=== PATIENT | female | born 1970 | race Caucasian/White ===

== ENCOUNTER 2023-07-22 12:24 | Outpatient (OUT) | payer MEDICAID, SELFPAY ==
--- NOTE | 2023-07-22 13:00 | XR_ITS ---
The [address] [address] Patient Name: FLOYD PEÑA MRN: [id number] date: 1970 Sex: F Assigned Patient Location: [facility] Current Patient Location: [facility] Accession/Order Number: [id number] Exam Date: 07/22/2023 12:55 Report Date: 07/22/2023 13:45 At the request of: EVA MAURICIO Procedure: XR hip RT 2V w/ pelvis PROCEDURE: XR hip RT 2V w/ pelvis HISTORY: M25.551 ; acute right hip pain after rolling over in bed COMPARISON: None. FINDINGS: BONES:1.7 cm thin-walled, slightly lucent area within femoral neck without appreciable periosteal reaction, cortical thickening, or fracture. No significant joint space narrowing or periarticular osteophytes. SOFT TISSUES:No visible soft tissue swelling. EFFUSION:None visible. OTHER: Negative. XR/XR hip RT 2V w/ pelvis IMPRESSION: 1. No acute bone abnormality. 2. Nonspecific bone lesion within right femoral neck; possible bone cyst. No prior studies of this area to document stability. Consider MRI of right hip for further evaluation. Alternatively, a follow-up right hip radiograph in 3-6 months can be obtained to start documenting stability versus change. Electronically authenticated by: AYO CRISTINA Date: 07/22/2023 13:45
== END 2023-07-22 12:25 | disposition home or self-care (01) ==
LOC: RAD 12:26
PROVIDERS: PCP Family Medicine; Visit Provider Family Medicine
DX: M25.551 Pain in right hip (principal)
CPT/HCPCS: 73502

== ENCOUNTER 2023-08-06 12:35 | Outpatient (OUT) | payer MEDICARE, MEDICAID, SELFPAY ==
--- NOTE | 2023-08-06 12:48 | MR_ITS ---
The [address] [address] Patient Name: FLOYD PEÑA MRN: [id number] date: 1970 Sex: F Assigned Patient Location: MRI Current Patient Location: MRI Accession/Order Number: [id number] Exam Date: 08/06/2023 13:00 Report Date: 08/06/2023 18:48 At the request of: EVA MAURICIO Procedure: MR hip RT wo con EXAM: MR hip RT wo con HISTORY: Right hip COMPARISON: X-rays 07/22/2023 and 10/30/2021 TECHNIQUE: Axial and coronal large sxivj-no-vorf MRI imaging through the pelvis and both hips. Small ibcax-ww-ltke coronal and sagittal MRI imaging through the right hip FINDINGS: As demonstrated on both prior x-rays there is a stable benign cyst within the right femoral head measuring approximately 11.9 x 10 x 8.5 mm (coronal 8 and axial 24). No fracture, dislocation, subluxation or osseous lesion. The pubic symphysis and sacroiliac joints are unremarkable. No visualized deep pelvic abnormality. Moderate effusion of the right hip joint. Bone marrow edema within the superior lateral aspect of the acetabulum. Questionable irregularity of the acetabular labrum between the 12:00 and 2:00 position. However, limited evaluation on this study. The femoral head and acetabular cartilage exhibits no gross chondral or osteochondral irregularity. The left hip joint exhibits no effusion. The acetabular labrum is normal. The femoral head and acetabular cartilage exhibit no gross abnormality. Chronic interstitial edema of the origin of both common hamstring complexes (coronal large hveuh-ch-team 25). The remainder of the visualized tendons exhibit no additional thickening, tear or edema. No abnormal bursal fluid collections. No muscle edema, hematoma, atrophy or fatty infiltration. The superficial subcutaneous soft tissues exhibit no edema, hematoma, mass or cyst MR/MR hip RT wo con IMPRESSION: Moderate right hip joint effusion. Poorly evaluated presumed fraying of the anterior superior aspect the acetabular labrum between the 12:00 and 2:00 position and degenerative marrow edema of the adjacent acetabulum. Benign simple cyst within the right femoral head Electronically authenticated by: JOAQUIN WELLINGTON Date: 08/06/2023 18:48
== END 2023-08-06 12:36 | disposition home or self-care (01) ==
PROVIDERS: PCP Family Medicine; Visit Provider Family Medicine
DX: M89.9 Disorder of bone, unspecified (principal); M25.451 Effusion, right hip
CPT/HCPCS: 73721

== ENCOUNTER 2023-09-13 11:11 | Outpatient (OUT) | payer MEDICARE, MEDICAID, SELFPAY ==
--- NOTE | 2023-09-13 11:13 | MM_ITS ---
Patient Name: FLOYD PEÑA MR#: [id number] : 1970 Exam Date: 09/13/2023 Ordering Doctor: DR Jonelle Hess M.D. RADIOLOGY REPORT PROCEDURE: MM TOMOSYNTHESIS SCREENING BI COMPARISON: MG MAMM FARHAN SCRN W CAD DIG, 11/22/2014. INDICATIONS: Screening Calculator Name NCI Breast Cancer Risk Assessment Tool 5 Year Breast Cancer Risk 0.70% Lifetime Breast Cancer Risk 6.40% Personal Breast Cancer No Personal Ovarian Cancer No Treatments None Family Cancers Mother with uterine cancer at age ~38; Grandmother-maternal with uterine cancer at age ~55. LOCATION: [facility] BREAST COMPOSITION: Scattered areas fibroglandular density. FINDINGS: DIAGNOSTIC CATEGORY 1--NEGATIVE. RIGHT BREAST: No significant suspicious finding. No significant change has occurred. LEFT BREAST: No significant suspicious finding. No significant change has occurred. RECOMMENDATIONS: ROUTINE MAMMOGRAM AND CLINICAL EVALUATION IN 12 MONTHS. PLEASE NOTE: A NORMAL MAMMOGRAM DOES NOT EXCLUDE THE POSSIBILITY OF BREAST CANCER. A CLINICALLY SUSPICIOUS PALPABLE LUMP SHOULD BE BIOPSIED. Dictated by: Justyn Forbes M.D. on 09/14/2023 at 15:58 Approved by: Justyn Forbes M.D. on 09/14/2023 at 16:01
== END 2023-09-13 11:12 | disposition home or self-care (01) ==
LOC: MAMMO 11:11
PROVIDERS: PCP Family Medicine; Visit Provider Family Medicine
DX: Z12.31 Encounter for screening mammogram for malignant neoplasm of breast (principal); Z80.8 Family history of malignant neoplasm of other organs or systems
CPT/HCPCS: 77063; 77067

== ENCOUNTER 2024-01-30 08:10 | Emergency (ER) | payer OTHER, MEDICAID, SELFPAY ==
[2024-01-30 08:14] VITALS: BP 168/95; PULSE 91; TEMP 36.6; O2SAT 100; BMI 25.5
--- OUTSIDE RECORDS SUMMARY | 2024-01-30 08:21 | XMS_ITS | CCD ---
Author Organization [facility] Care Team Providers Care Strategic Client Executive Name Role Phone JONELLE MAURICIO Unavailable Unavailable KARIN, VESELIN Unavailable Unavailable GRECHBENITO, PA DONNIE Consulting Unavailable SHANNAN, DR TELLES Admitting Unavailable HAY, DR TELLES Attending Unavailable HANG, DR JONELLE Martínez Primary Care Unavailable HAY, DR TELLES Consulting Unavailable Arzola, Nathan Consulting Unavailable HANG, DR JONELLE Martínez Admitting Unavailable MAURICIO, DR JONELLE Martínez Attending Unavailable MAURICIO, DR JONELLE Martínez Consulting Unavailable MAURICIO, DR JONELLE Martínez Primary Care Unavailable ZIEBER, DR JUSTYN Sousa Consulting Unavailable HANG, DR JONELLE Martínez Admitting Unavailable MAURICIO, DR JONELLE Martínez Attending Unavailable HANG, DR JONELLE Martínez Primary Care Unavailable MAURICIO, DR JONELLE Martínez Consulting Unavailable Hang, Jonelle Unavailable PRIYA AGUERO Attending Unavailable PRIYA AGUERO Referring Unavailable Jonelle Mauricio MD Primary Care Provider Allergies Allergy Classification Reported Allergen(s) Allergy Type Date of Onset Reaction(s) Facility (1 source) Acetaminophen / HYDROcodone Drug Allergy 05-05-20 17 [facility] Repository (1 source) Iodine (And Iodine Containting Drugs) Drug allergy (disorder) 05-05-20 17 [facility] Rep[facility] (1 source) Latex Drug allergy (disorder) 05-05-20 17 [facility] Repository (4 sources) Acetaminophen / oxyCODONE Drug Allergy anaphylaxis [facility] [employer] Other (4 sources) Contrast media Propensity to adverse reactions 12-15-19 14 Unknown [facility] Other (4 sources) Latex Propensity to adverse reactions rash [facility] [employer] Other (4 sources) Vicodin *ANALGESICS - OPIOID* Propensity to adverse reactions Unknown [facility] [employer] Other (4 sources) Contrast Media [employer] *MEDICAL DEVICES AND SUPP Propensity to adverse reactions Comment:Iodine contrast [facility] Other (1 source) Acetaminophen / HYDROcodone Drug Allergy 05-31-20 16 Unknown [facility] Healthcare (1 source) Iodine Drug Allergy 01-18-20 12 Rash [facility] Medications Current Medications Medication Drug Class(es) Dates Sig (Normalized) Sig (Original) busPIRone hydrochloride 5 mg oral tablet (1 source) take 1 tablet by mouth every twelve hours busPIRone HCl 5 MG 1 tablet Orally Twice a day for 30 days Active 24 hr metoprolol succinate 25 mg extended release oral tablet (4 sources) beta-Adrenergic Peter Start: 07-22-2023 take 1 tablet by mouth every twenty-four hours in the morning metoprolol succinate XL (Toprol-XL) 25 MG 24 hr tablet Take 25 mg by mouth in the morning. 0 07/22/2023 Active Start: 07-22-2023 take 1 tablet by melissa th every twenty-four hours Toprol XL 25 MG 1 tablet Orally Once a day for 30 day(s) Jul, Active Multivitamins (4 sources) Multivitamins as directed Orally Active Problems Active Problems Problem Classification Problem Date Documented Da te Episodic/Chronic Anxiety disorders (5 sources) Anxiety disorder; Translations: [Anxiety disorder, unspecified] Onset: 06-08-2014 Chronic Chronic obstructive pulmonary disease and bronchiectasis (1 source) Bronchitis, not specified as acute or chronic; Translations: [BRONCHITIS NOT SPEC ACUTE/CHRON] Onset: 12-19-2021 Episodic Essential hypertension (4 sources) Essential hypertension; Translations: [Essential (primary) hypertension] Chronic Nonspecific chest pain (1 source) Chest pain, unspecified; Translations: [Chest pain, unspecified] Onset: 06-21-2018 Episodic Other aftercare (1 source) Other watermelon harvesting supervisor (current) drug therapy; Translations: [OTH CARE HOME CURRENT DRUG THERAPY] Onset: 12-19-2021 Episodic Other aftercare (4 sources) History and physical examination, follow-up; Translations: [Encounter for follow-up examination after completed treatment for conditions other than malignant neoplasm] Episodic Other bone disease and musculoskeletal deformities (1 source) Disorder of bone, unspecified Episodic Other circulatory disease (4 sources) Elevated blood-pressure reading without diagnosis of hypertension; Translations: [Elevated blood-pressure reading, without diagnosis of hypertension] Episodic Other circulatory disease (1 source) Elevated blood-pressure reading, without diagnosis of hypertension Episodic Other non-traumatic joint disorders (5 sources) Pain in right hip; Translations: [PAIN IN RIGHT HIP] Onset: 10-30-2021 Episodic Other non-traumatic joint disorders (4 sources) Pain in right hip joint; Translations: [Pain in right hip] Episodic Other nutritional; endocrine; and metabolic disorders (4 sources) Body mass index 25-29 - overweight; Translations: [Body mass index (BMI) 25.0-25.9, adult] Episodic Other screening for suspected conditions (not mental disorders or infectious disease) (1 source) Encounter for screening mammogram for malignant neoplasm of breast Episodic Other upper respiratory infections (4 sources) Chronic sinusitis; Translations: [Chronic sinusitis, unspecified] Chronic Spondylosis; intervertebral disc disorders; other back problems (8 sources) Backache; Translations: [Dorsalgia, unspecified] Resolved: 05-20-2017 Episodic Substance-related disorders (1 source) Nicotine dependence, cigarettes, uncomplicated; Translations: [NICOTINE DEPEND CIGARETTES UNCOMP] Onset: 12-19-2021 Chronic Unclassified (3 sources) COUGH, UNSPECIFIED; Translations: [COUGH, UNSPECIFIED] Onset: 12-19-2021 Unclassified (4 sources) CONTACT W/AND (SUSP) EXPOS COVID-19; Translations: [CONTACT W/AND (SUSP) EXPOS COVID-19] Onset: 12-19-2021 Unclassified (1 source) LOW BACK PAIN, UNSPECIFIED; Translations: [LOW BACK PAIN, UNSPECIFIED] Onset: 11-05-2021 Past or Other Problems Problem Classification Problem Date Documented Date Episodic/Chronic Abdominal pain (4 sources) Abdominal pain; Translations: [Unspecified abdominal pain] Onset: 04-19-2017 Episodic Malaise and fatigue (4 sources) Fatigue; Translations: [Other fatigue] Onset: 04-19-2017 Episodic Nausea and vomiting (4 sources) Vomiting; Translations: [Vomiting, unspecified] Onset: 04-19-2017 Episodic Other female genital disorders (4 sources) Hypertrophy of uterus; Translations: [Hypertrophy of uterus] Onset: 04-19-2017 Episodic Other female genital disorders (4 sources) Other noninflammatory disorders of ovary, fallopian tube and broad ligament; Translations: [Other noninflammatory disorders of ovary, fallopian tube and broad ligament] Onset: 04-22-2017 Episodic Unclassified (1 source) COUGH, UNSPECIFIED; Translations: [COUGH, UNSPECIFIED] Onset: 12-16-2021 Unclassified (1 source) CONTACT W/AND (SUSP) EXPOS COVID-19; Translations: [CONTACT W/AND (SUSP) EXPOS COVID-19] Onset: 12-10-2021 Results Test Name Value Interpretation Reference Range Facility CBC AUTO DIFFon 12-16-2021 BASO # 0.0 103/ul Normal 0.0-0.1 [facility] Comment on above: Performed By: #### C BC #### [facility] [address] [address] [address] Paxton Kim Basophils/100 WBC (Bld) 0.8 % Normal 0.2-2.0 [facility] Comment on above: Performed By: #### C BC #### [facility] [address] [address] [address] Paxton Kim EO # 0.1 103/ul Normal 0.0-0.7 [facility] Comment on above: Performed By: #### C BC #### [facility] [address] [address] [address] Paxton Kim Eosinophils/100 WBC (Bld) 2.2 % Normal 0.9-7.0 [facility] Comment on above: Performed By: #### C BC #### [facility] [address] [address] [address] Paxton Kim Erythrocyte distribution width (RBC) [Ratio] 13.6 % Normal 11.0-15.0 [facility] Comment on above: Performed By: #### C BC #### [facility] [address] [address] [address] Paxton Kim Hematocrit (Bld) [Volume fraction] 44.1 % Normal 36.0-48.0 [facility] Comment on above: Performed By: #### C BC #### [facility] [address] [address] [address] Paxton Kim Hemoglobin (Bld) [Mass/Vol] 14.7 g/dL Normal 12.0-16.0 [facility] Comment on above: Performed By: #### C BC #### [facility] [address] [address] [address] Paxton Kim IG # 0.03 10e3/ul Normal 0.00-0.03 [facility] Comment on above: Performed By: #### C BC #### [facility] [address] [place] [address] Dr. Paxton Kim IG % 0.6 % Critically high 0.0-0.5 [facility] Comment on above: Performed By: #### C BC #### [facility] [address] [place] [address] Dr. Paxton Kim LYMPH # 1.1 103/ul Critically low 1.2-3.8 [facility] Comment on above: Performed By: #### C BC #### [facility] [address] [place] [address] Dr. Paxton Kim Lymphocytes/100 WBC (Bld) 22.5 % Normal 20.5-60.0 [facility] Comment on above: Performed By: #### C BC #### [facility] [address] [place] [address] Dr. Paxton Kim MANUAL DIFF REQ NO Normal [facility] Comment on above: Performed By: #### C BC #### [facility] [address] [place] [address] Dr. Paxton Kim MCH (RBC) [Entitic mass] 31.1 pg Normal 26.7-34.0 [facility] Comment on above: Performed By: #### C BC #### [facility] [address] [place] [address] Dr. Paxton Kim MCHC (RBC) [Mass/Vol] 33.3 g/dL Normal 29.9-35.2 [facility] Comment on above: Performed By: #### C BC #### [facility] [address] [place] [address] Dr. Paxton Kim MCV (RBC) [Entitic vol] 93.4 fL Normal 81.0-99.0 [facility] Comment on above: Performed By: #### C BC #### [facility] [address] [address] [address] Paxton Kim MONO # 0.6 103/ul Normal 0.3-0.8 [facility] Comment on above: Performed By: #### C BC #### [facility] [address] [address] [address] Paxton Kim Monocytes/100 WBC (Bld) 11.9 % Normal 1.7-12.0 [facility] Comment on above: Performed By: #### C BC #### [facility] [address] [place] [address] Dr. Paxton Kim NEUT # 3.0 103/ul Normal 1.4-6.5 [facility] Comment on above: Performed By: #### C BC #### [facility] [address] [place] [address] Dr. Paxton Kim Neutrophils/100 WBC (Bld) 62.0 % Normal 43.0-75.0 [facility] Comment on above: Performed By: #### C BC #### [facility] [address] [place] [address] Dr. Paxton Kim Platelet mean volume (Bld) [Entitic vol] 9.1 fL Critically low 9.5-13.5 [facility] Comment on above: Performed By: #### C BC #### [facility] [address] [place] [address] Dr. Paxton Kim PLT 271 103/ul Normal 150-450 [facility] Comment on above: Performed By: #### C BC #### [facility] [address] [place] [address] Dr. Paxton Kim RBC 4.72 106/ul Normal 4.20-5.40 [facility] Comment on above: Performed By: #### C BC #### [facility] [address] [place] [address] Dr. Paxton Kim WBC 4.9 103/ul Normal 4.0-11.0 [facility] Comment on above: Performed By: #### C BC #### [facility] [id number] Paxton Kim CTA CHEST WO W CONon 022 CTA CHEST WO W CON EXAMINATION: CTA LAYLA ST WO W CON, 12/16/2021 HISTORY: Pulmonary embolism COMPARISON: Chest x-ray 2019. TECHNIQUE: CT angiography of the pulmonary arteries following the administration of intravenous 100 mL Omnipaque 350 iodine contrast. Coronal and sagittal MIP (maximum intensity projection) images were performed. The study is satisfactory for evaluation of the pulmonary arteries. Dose reduction techniques were achieved by using automated exposure control and/or adjustment of mA and/or kV according to patient size and/or use of iterative reconstruction technique. FINDINGS: The main pulmonary artery, right and left lobar pulmonary arteries and bilateral segmental pulmonary arteries are opacified and show no filling defect to suggest pulmonary thromboembolism. The lung windows demonstrate small groundglass infiltrates in the right upper lobe which could be due to early pneumonia. The central tracheobronchial airways are patent. Mild bronchial thickening in the upper lobes. Mild bronchial thickening and plugging is seen in the lower lobe bronchi. The mediastinal windows demonstrate no mediastinal or hilar lymph node enlargement. No pleural or pericardial effusion. Patent thoracic aorta and patent great vessels arising from the aortic arch. The esophagus is nondilated. Unremarkable thyroid gland. The bone windows show no focal aggressive lesion. IMPRESSION: 1. No CT evidence of pulmonary thromboembolism. 2. Bilateral diffuse bronchial wall thickening, more so in the lower lobes with plugging of the segmental bronchi, consistent with bronchitis. Small groundglass infiltrates in the right upper lobe could be due to early pneumonia. Electronically authenticated by: NATHAN ARZOLA Date: 2021-12-16 20:15 Normal [facility] Covid-19 PCR (CVDTBH)on 12-02 SARS-CoV-2 (COVID-19) RNA SHAYLA+probe Ql (Unsp spec) Not detected Normal NOT DETECTED [facility] Comment on above: Result Comment: This test is not yet approved or cleared by the [place] FDA. When there are no FDA-approved or cleared tests available, and other criteria are met, FDA can make tests available under an emergency access mechanism called an Emergency Use Authorization (EUA). The EUA for this test is supported by the [place] of Health and Human Service's (HHS's) declaration that circumstances exist to justify the emergency use of in vitro diagnostics for the detection and/or diagnosis of the virus that causes COVID-19. This EUA will remain in effect (meaning this test can be used) for the duration of the COVID-19 declaration justifying emergency of IVDs, unless it is terminated or revoked by FDA (after which the test may no longer be used). When diagnostic testing is negative, the possibility of a false negative should be considered in the context of a patient's recent exposures and the presence of clinical signs and symptoms consistent with SARS-CoV-2. Performed By: #### C VDTB #### [facility] [address] [place] [address] Dr. Paxton Kim ER URINE PROFILEon 2 Bilirubin Ql (U) Negative Normal NEGATIVE [facility] Comment on above: Performed By: #### E RUR #### [facility] [address] [place] [address] Dr. Paxton Kim Clarity (U) CLEAR Normal CLEAR [facility] Comment on above: Performed By: #### E RUR #### [facility] [address] [place] [address] Dr. Paxton Kim Color (U) YELLOW Normal YELLOW [facility] Comment on above: Performed By: #### E RUR #### [facility] [address] [place] [address] Dr. Paxton MENDIETA A micrscopic examination will be performed if indicated. Normal [facility] Comment on above: Performed By: #### E RUR #### [facility] [address] [place] [address] Dr. Paxton Kim Glucose Ql (U) Negative Normal NEGATIVE [facility] Comment on above: Performed By: #### E RUR #### [facility] [address] [place] [address] Dr. Paxton Kim Hemoglobin Ql (U) Negative Normal NEGATIVE [facility] Comment on above: Performed By: #### E RUR #### [facility] [address] [place] [address] Dr. Paxton Kim Ketones Ql (U) Negative Normal NEGATIVE [facility] Comment on above: Performed By: #### E RUR #### [facility] [address] [place] [address] Dr. Paxton Kim LEUKOCYTES Negative Normal NEGATIVE [facility] Comment on above: Performed By: #### E RUR #### [facility] [address] [place] [address] Dr. Paxton Kim Nitrite Ql (U) Negative Normal NEGATIVE [facility] Comment on above: Performed By: #### E RUR #### [facility] [address] [place] [address] Dr. Paxton Kim pH (U) 5.5 [pH] Normal 5-9 [facility] Comment on above: Performed By: #### E RUR #### [facility] [address] [place] [address] Dr. Paxton Kim SPEC GRAVITY >=1.030 Abnormal 1.005-<=1.025 [facility] Comment on above: Performed By: #### E RUR #### [facility] [address] [place] [address] Dr. Paxton Kim UA PROTEIN Negative Normal NEGATIVE/ TRACE [facility] Comment on above: Performed By: #### E RUR #### [facility] [address] [place] [address] Dr. Paxton Kim UR MICRO IND NOT INDICATED Normal [facility] Comment on above: Performed By: #### E RUR #### [facility] [address] [place] [address] Dr. Paxton Kim Urobilinogen Qn (U) 0.2 {Alex'U}/dL Normal 0.2 - 1. 0 [facility] Comment on above: Performed By: #### E RUR #### [facility] [address] [place] [address] Dr. Paxton Kim LACTATE/LACTIC ACIDon 2021 Lactate [Moles/Vol] 1.1 mmol/L Normal 0.7-2.0 [facility] Comment on above: Performed By: #### L ACT #### [facility] [address] [place] [address] Dr. Paxton Kim PROF 14(COMP METB)on 022 Albumin [Mass/Vol] 3.7 g/dL Normal 3.5-5.0 [facility] Comment on above: Performed By: #### H WENDY, CMP #### [facility] [address] [address] [address] Paxton Kim Albumin/Globulin [Mass ratio] 1.0 {ratio} Normal [facility] Comment on above: Performed By: #### H WENDY, CMP #### [facility] [address] [address] [address] Paxton Kim ALP [Catalytic activity/Vol] 111 U/L Normal 38-126 [facility] Comment on above: Performed By: #### H WENDY, CMP #### [facility] [address] [address] [address] Paxton Kim ALT [Catalytic activity/Vol] 32 U/L Normal 9-52 [facility] Comment on above: Performed By: #### H WENDY, CMP #### [facility] [address] [address] [address] Paxton Kim Anion gap [Moles/Vol] 11.5 mmol/L Normal [facility] Comment on above: Performed By: #### H WENDY, CMP #### [facility] [address] [address] [address] Paxton Kim AST [Catalytic activity/Vol] 21 U/L Normal 14-36 [facility] Comment on above: Performed By: #### H WENDY, CMP #### [facility] [address] [address] [address] Paxton Kim Bilirubin [Mass/Vol] 0.2 mg/dL Normal 0.2-1.3 [facility] Comment on above: Performed By: #### H J CARLOSPN, CMP #### [facility] [address] [address] [address] Paxton Kim Calcium [Mass/Vol] 9.3 mg/dL Normal 8.4-10.2 [facility] Comment on above: Performed By: #### H J CARLOSPN, CMP #### [facility] [address] [address] [address] Paxton Kim Chloride [Moles/Vol] 105 mmol/L Normal 98-107 [facility] Comment on above: Performed By: #### H STROPN, CMP #### [facility] [address] [address] [address] Paxton Kim CO2 [Moles/Vol] 22.9 mmol/L Normal 22.0-30.0 [facility] Comment on above: Performed By: #### H STROPN, CMP #### [facility] [address] [address] [address] Paxton Kim Creatinine [Mass/Vol] 0.60 mg/dL Normal 0.52-1.04 [facility] Comment on above: Performed By: #### H STROPN, CMP #### [facility] [address] [place] [address] Dr. Paxton Kim EGFR-AF ECUADOREAN >60 Normal >=60 [facility] Comment on above: Performed By: #### H STROPN, CMP #### [facility] [address] [place] [address] Dr. Paxton Kim EGFR-NON AF [place]UADOREAN >60 Normal >=60 [facility] Comment on above: Performed By: #### H STROPN, CMP #### [facility] [address] [address] [address] Paxton Kim Globulin (S) [Mass/Vol] 3.6 g/dL Normal [facility] Comment on above: Performed By: #### H STROPN, CMP #### [facility] [address] [place] [address] Dr. Paxton Kim Glucose [Mass/Vol] 109 mg/dL Critically high 74-[address] [facility] Comment on above: Performed By: #### H STROPN, CMP #### [facility] [address] [place] [address] Dr. Paxton Kim Potassium [Moles/Vol] 3.4 mmol/L Normal 3.4-5.0 [facility] Comment on above: Performed By: #### H STROPN, CMP #### [facility] [address] [address] [address] Paxton Kim Protein [Mass/Vol] 7.3 g/dL Normal 6.1-8.2 [facility] Comment on above: Performed By: #### H J CARLOSPN, CMP #### [facility] [address] [address] [address] Paxton Kim Sodium [Moles/Vol] 136 mmol/L Critically low 137-145 [facility] Comment on above: Performed By: #### H J CARLOSPN, CMP #### [facility] [address] [address] [address] Paxton Kim Urea nitrogen [Mass/Vol] 10.0 mg/dL Normal 7.0-17.0 [facility] Comment on above: Performed By: #### H J CARLOSPN, CMP #### [facility] [address] [place] [address] Dr. Paxton Kim Urea nitrogen/Creatinine [Mass ratio] 16.7 mg/mg Normal [facility] Comment on above: Performed By: #### H J CARLOSPN, CMP #### [facility] [address] [address] [address] Paxton Kim TROPONIN, HIGH SENSITIVITYon 12-16-2021 HSTROP 6.4 pg/mL Normal 4.0-35.5 [facility] Comment on above: Result Comment: CUT- OFF POINTS HAVE BEEN ESTABLISHED BASED ON THE FOURTH UNIVERSAL DEFINITIONS OF MYOCARDIAL INFARCTION. THE UPPER REFERENCE LIMIT (URL) OF TROPONIN, DEFINED THE 99TH PERCENTILE OF cTnI DISTRIBUTION IN A REFERENCE POPULATION, HAS BEEN CONFIRMED THE DECISION THRESHOLD FOR [place] DIAGNOSIS. Performed By: #### H J CARLOSPN, CMP #### [facility] [address] [place] [address] Dr. Paxton Kim Covid-19 PCR (CVDTB)on SARS-CoV-2 (COVID-19) RNA SHAYLA+probe Ql (Unsp spec) Not detected Normal NOT DETECTED [facility] Comment on above: Result Comment: This test is not yet approved or cleared by the [place] FDA. When there are no FDA-approved or cleared tests available, and other criteria are met, FDA can make tests available under an emergency access mechanism called an Emergency Use Authorization (EUA). The EUA for this test is supported by the [place] Coord[place] of Health and Human Service's (HHS's) declaration that circumstances exist to justify the emergency use of in vitro diagnostics for the detection and/or diagnosis of the virus that causes COVID-19. This EUA will remain in effect (meaning this test can be used) for the duration of the COVID-19 declaration justifying emergency of IVDs, unless it is terminated or revoked by FDA (after which the test may no longer be used). When diagnostic testing is negative, the possibility of a false negative should be considered in the context of a patient's recent exposures and the presence of clinical signs and symptoms consistent with SARS-CoV-2. Performed By: #### C [facility] #### [facility] [address] [place] [id number] Paxton Kim XR LSPINE MIN 4 VIEWSon 10-03 XR LSPINE MIN 4 VIEWS EXAMINATION: XR LSPINE MIN 4 VIEWS HISTORY: Low back pain for one and half months; no known injury COMPARISON: XR lumbar spine 05/31/2016 FINDINGS: BONES: Mild degenerative facet arthropathy L4-5, L5-S1. No fracture or spondylolisthesis. DISC SPACES: No significant disc height narrowing, subluxation, or endplate abnormality. PARASPINOUS: Negative. No paraspinous abnormality is seen. OTHER: Surgical clips and bowel sutures within right abdomen. Single surgical clip within left pelvis. IMPRESSION: 1. No acute bone abnormality. 2. Mild degenerative facet arthropathy of the lower lumbar spine. Electronically authenticated by: JUSTYN CRISTINA Date: 2021-10-30 11:37 Normal [facility] CBC with Diffon 06-21-2018 Abs. Basophil 0.00 k/uL Normal 0.0-0.2 [facility] Comment on above: Performed By: #### C KENNETH VARGAS DIME, CP ####[facility] [place] [address] Abs.Neutrophil (Seg) 4.80 k/uL Normal 2.5-7.0 [facility] Comment on above: Performed By: #### C KENNETH VARGAS DIME, CP ####[facility] [place] [address] Auto Diff Performed YES Normal [facility] Comment on above: Performed By: #### C DP, TROPI, DIME, CP ####[facility] [place] [address] Basophils/100 WBC Auto (Bld) 1 % Normal 0-2 [facility] Comment on above: Performed By: #### C DP, TROPI, DIME, CP ####[facility] [place] [address] Eosinophils Auto #/vol (Bld) 0.10 10*3/uL Normal 0.0-0.4 [facility] Comment on above: Performed By: #### C DP, TROPI DIME, CP ####[place] [address] [place] [address] Eosinophils/100 WBC Auto (Bld) 1 % Normal 0-5 [facility] Comment on above: Performed By: #### C DP, TROPI DIME, CP ####[place] [address] [place] [address] Erythrocyte distribution width Auto Ratio (RBC) 14.2 % Normal 12.1-15.2 [facility] Comment on above: Performed By: #### C DP, TROPI DIME, CP ####[facility] [place] [address] Hematocrit Auto Volume Fraction (Bld) 44.0 % Normal 36-46 [facility] Comment on above: Performed By: #### C DP, TROPI, DIME, CP ####[facility] [place] [address] Hemoglobin mass conc (Bld) 15.0 g/dL Normal 12.0-16.0 [facility] Comment on above: Performed By: #### C DP, TROPI, DIME, CP ####[facility] [place] [address] Lymphocytes Auto #/vol (Bld) 1.90 10*3/uL Normal 1.0-4.8 [facility] Comment on above: Performed By: #### C DP, TROPI, DIME, CP ####[facility] [place] [address] Lymphocytes/100 WBC Auto (Bld) 26 % Normal 15-40 [facility] Comment on above: Performed By: #### C DP, TROPI, DIME, CP ####[place] [address] [place] [address] MCH Auto Entitic mass (RBC) 31.9 pg Normal 26-34 [facility] Comment on above: Performed By: #### C DP, TROPI, DIME, CP ####[place] [address] [place] [address] MCHC Auto mass conc (RBC) 34.2 g/dL Normal 31-37 [facility] Comment on above: Performed By: #### C DP, TROPI, DIME, CP ####[facility] [place] [address] MCV Auto Entitic volume (RBC) 93.3 fL Normal 80-100 [facility] Comment on above: Performed By: #### C DP, TROPI, DIME, CP ####[facility] [place] [address] Monocytes Auto #/vol (Bld) 0.50 10*3/uL Normal 0.0-1.0 [facility] Comment on above: Performed By: #### C DP, TROPI, DIME, CP ####[facility] [place] [address] Monocytes/100 WBC Auto (Bld) 7 % Normal 4-8 [facility] Comment on above: Performed By: #### C KENNETH VARGAS DIME, CP ####[facility] [place] [address] Neutrophil (Seg) 65 % Normal 47-75 [facility] Comment on above: Performed By: #### C KENNETH VARGAS DIME, CP ####[place] [address] [place] [address] Platelets Auto #/vol (Bld) 339 10*3/uL Normal 140-450 [facility] Comment on above: Performed By: #### C KENNETH VARGAS DIME, CP ####[place] [address] [place] [address] RBC Auto #/vol (Bld) 4.71 10*6/uL Normal 4.0-5.2 [facility] Comment on above: Performed By: #### C KENNETH VARGAS DIME, CP ####[facility] [place] [address] WBC Auto #/vol (Bld) 7.3 10*3/uL Normal 3.5-11.0 [facility] Comment on above: Performed By: #### C KENNETH VARGAS DIME, CP ####[place] [address] [facility] [place] [address] Abs.Imm.Granulocyte NOT REPORTED Normal 0.00-0.30 [facility] Comment on above: Performed By: #### C KENNETH VARGAS DIME, CP ####[place] [address] [facility] [place] [address] Immature granulocytes #/vol (Bld) NOT REPORTED Normal 0 [facility] Comment on above: Performed By: #### C KENNETH VARGAS DIME, CP ####[place] [address] [place] [address] NRBC Automated NOT REPORTED Normal [facility] Comment on above: Performed By: #### C DP, TROPICHRISTENE, CP ####[facility] [place] [address] Platelet mean volume Auto Entitic volume (Bld) NOT REPORTED Normal 6.0-12.0 [facility] Comment on above: Performed By: #### C DP, TROPI, DIME, CP ####[facility] [place] [address] Platelets Auto #/vol (Bld) NOT REPORTED Normal [facility] Comment on above: Performed By: #### C DP, TROPI, DIME, CP ####[facility] [place] [address] RBC morphology finding Nom (Bld) NOT REPORTED Normal [facility] Comment on above: Performed By: #### C DP, TROPI, DIME, CP ####[facility] [place] [address] WBC Morphology NOT REPORTED Normal [facility] Comment on above: Performed By: #### C DP, TROPI, DIME, CP ####[place] [address] [place] [address] Comp Metabolic Profon 2017 (cont.) Normal [facility] Comment on above: Result Comment: Aver age GFR for 40-49 years old: 99 mL/min/1.73sq mChronic Kidney Disease: <60 mL/min/1.73sq mKidney failure: <15 mL/min/1.73sq meGFR calculated using average adult body mass. Additional eGFR calculator available at:http://www.Involvio.jellyfish/multiple_crcl_2012.htm Performed By: #### C DP, TROPI, DIME, CP ####[facility] [place] [address] Albumin mass conc 5.0 g/dL Normal 3.5-5.2 [facility] Comment on above: Performed By: #### C DP, TROPI, DIME, CP ####[facility] [id number] Alkaline Phos 105 U/L High 35-104 [facility] Comment on above: Performed By: #### C DP, TROPI, DIME, CP ####[facility] [place] [address] ALT enzyme act/vol 27 U/L Normal 5-33 [facility] Comment on above: Performed By: #### C DP, TROPI, DIME, CP ####[place] [address] [place] [address] Anion gap 3 molar conc 17 mmol/L Normal 9-17 [facility] Comment on above: Performed By: #### C DP, TROPI, DIME, CP ####[facility] [place] [place] [address] AST enzyme act/vol 29 U/L Normal <32 [facility] Comment on above: Performed By: #### C DP, TROPI, DIME, CP ####[facility] [place] [address] Bilirubin Ql (U) 0.48 mg/dL Normal 0.30-1.20 [facility] Comment on above: Performed By: #### C DP, TROPI, DIME, CP ####[place] [address] [place] [address] BUN/CRE Ratio 24 High 9-20 [facility] Comment on above: Performed By: #### C DP, TROPI, DIME, CP ####[place] [address] [place] [place] [address] Calcium mass conc 10.0 mg/dL Normal 8.6-10.4 [facility] Comment on above: Performed By: #### C DP, TROPI, DIME, CP ####[facility] [place] [address] Chloride molar conc 102 mmol/L Normal 98-107 [facility] Comment on above: Performed By: #### C DP, TROPI, DIME, CP ####[facility] [id number] CO2 molar conc 22 mmol/L Normal 20-31 [facility] Comment on above: Performed By: #### C DP, TROPI, DIME, CP ####[facility] [place] [address] Creatinine mass conc 0.78 mg/dL Normal 0.50-0.90 [facility] Comment on above: Performed By: #### C DP, TROPI, DIME, CP ####[facility] [place] [address] GFR, Amer >60 Normal >60 [facility] Comment on above: Performed By: #### C DP, TROPI, DIME, CP ####[facility] [place] [address] GFR,non Amer >60 Normal >60 [facility] Comment on above: Performed By: #### C DP, TROPI, DIME, CP ####[facility] [place] [address] Glucose mass conc 86 mg/dL Normal 70-99 [facility] Comment on above: Performed By: #### C DP, TROPI, DIME, CP ####[facility] [place] [address] Potassium molar conc 3.7 mmol/L Normal 3.7-5.3 [facility] Comment on above: Performed By: #### C DP, TROPICHRISTENE, CP ####[facility] [place] [address] Protein mass conc 7.7 g/dL Normal 6.4-8.3 [facility] Comment on above: Performed By: #### C DP, TROPI DIME, CP ####[address] [place] [address] Sodium molar conc 141 mmol/L Normal 135-144 [facility] Comment on above: Performed By: #### C DP, TROPI DIME, CP ####[place] [address] [place] [address] Urea nitrogen mass conc 19 mg/dL Normal 6-20 [facility] Comment on above: Performed By: #### C DP, TROPI DIME, CP ####[place] [address] [place] [address] Albumin/Globulin mass ratio NOT REPORTED Normal 1.0-2.5 [facility] Comment on above: Performed By: #### C DP, TROPI, DIME, CP ####[place] [address] [place] [address] Staging: NOT REPORTED Normal [facility] Comment on above: Performed By: #### C DP, TROPI, DIME, CP ####[place] [address] [place] [address] D-Dimer Teston 06-21-2018 D-Dimer Test 0.22 mg/L FEU Normal 0.00-0.50 [facility] Comment on above: Result Comment: Elev ated levels of D dimer can be seen in any state of coagulation activation including DVT, PE, arterial thrombosis, DIC, inflamatory disease, trauma, malignancy, sepsis, infection, hematoma, liver disease, post surgical state, , atherosclerosis, old age.When combined with a low clinical probability, a D dimer value of <0.50 mg/L is considered negative for DVT and PE (negative predictive value of 98%). Performed By: #### C DPKENNETH DIME, CP ####[address] [place] [address] ED Noteon 06-21-2018 HIM IP Note OR General Surgery Physician Assistant Normal [facility] ED Provider Noteon 8 HIM IP Note OR General Surgery Physician Assistant Normal [facility] Progress Noteon 06-21-2018 HIM IP Note OR General Surgery Physician Assistant Normal [facility] Troponinon 06-21-2018 Troponin I.cardiac mass conc Normal [facility] Comment on above: Result Comment: Refe rence Range: <0.03 Within reference range. 0.03-0.09 Possible myocardial damage.Repeat at appropriate intervals to rule out chronic elevation. >= 0.10 Indicative of myocardial damage.Patients with high levels of Biotin oral intake (i.e >5mg/day) may have falsely decreased Troponin T levels. Samples collected within 8 hours of biotin intake may require additional information for diagnosis. Performed By: #### C DPKENNETH DIME, CP ####[address] [place] [address] Troponin T.cardiac mass conc ug/L Normal <0.03 [facility] Comment on above: Result Comment: Trop onin T results cannot be compared to Troponin-I results. Performed By: #### C DP, KALA COOPER, CP ####[address], [place] [id number]) XR CHEST (2 VW)on 06-21-2018 XR CHEST (2 VW) XR CHEST (2 VW): HISTORY: Chest pain and shortness of breath.COMPARISON: Chest and rib series 06/29/2013. FINDINGS: The cardiomediastinal silhouette appears normal. There is mild central bronchial wall thickening suggestive of bronchitis. There is no focal consolidation, pleural effusion or pneumothorax. Bones and soft tissues appear normal.IMPRESSION: 1. Possible mild bronchitis.2. No focal consolidation.Interpret ed by:LE Reynaigned by:Justyn Alarcon MD06/21/18inal result Normal [facility] Vital Signs Date Time Vital Sign Value Performing Clinician Facility 06-16-2023 11:30-0400 Body height 153.67 cm Jonelle Mauricio Other [facility] Other 06-16-2023 11:30-0400 Body mass index (BMI) [Ratio] 25.54 kg/m2 Jonelle Mauricoi Other [facility] Other 06-16-2023 11:30-0400 Body weight 60.33 kg Jonelle Mauricio Other [facility] Other 06-16-2023 11:30-0400 Diastolic blood pressure 82 mm[Hg] Jonelle Mauricio Other [facility] Other 06-16-2023 11:30-0400 SaO2% (BldA) [Mass fraction] 98 % Jonelle Mauricio Other [facility] Other 06-16-2023 11:30-0400 Systolic blood pressure 126 mm[Hg] Jonelle Mauricio Other [facility] Other Encounters Encounter Date Encounter Type Care Provider Facility Start: 11-29-2023 End: 11-30-2023 ambulatory PRIYA AGUERO Not Available Start: 08-30-2023 End: 08-30-2023 ambulatory Jonelle Mauricio Other [facility] Other Start: 08-30-2023 Telephone encounter Jonelle Mauricio [facility] Start: 08-09-2023 End: 08-09-2023 ambulatory Jonelle Mauricio Other [facility] Other Start: 08-09-2023 Chart abstracting Priya smith PA Work Phone: [facility] Start: 08-09-2023 Telephone encounter Jonelle Mauricio [facility] Start: 07-27-2023 End: 07-27-2023 ambulatory Jonelle Mauricio Other [facility] Other Start: 07-27-2023 Telephone encounter Jonelle Hang [facility] Start: 06-16-2023 End: 06-16-2023 ambulatory Jonelle Hang Other [facility] Other Start: 06-16-2023 Office outpatient vi sit 15 minutes Jonelle Hang [facility] Start: 12-16-2021 End: 12-16-2021 ambulatory SOLOMON LEAL Facility:[facility] Start: 12-10-2021 End: 12-10-[address] JONELLE MAURICIO Facility:[facility] Start: 10-30-2021 End: 10-31-[address] JUSTYN CRISTINA Facility:[facility] Start: 06-21-2018 End: 06-21-2018 Emergency department patient visit JONELLE MAURICIO [facility] Start: 05-20-2017 End: 05-20-2017 Gynecological examination normal Jonelle Mauricio Other [facility] Other Procedures Date Procedure Procedure Detail Performing Clinician Start: 06-21-2018 Radiologic exam chest 2 views JONELLE MAURICIO Start: 06-21-2018 Blood count complete auto&auto difrntl wbc JONELLEVIDHI MAURICIO Start: 06-21-2018 Comprehensive metabolic panel JONELLE MAURICIO Start: 06-21-2018 D-DIMER, QUANTITATIVE M ODALYS MAURICIO Start: 06-21-2018 TROPONIN JONELLE BRA UN Start: 06-21-2018 NEBULIZER TX INTERMITTENT JONELLEVIDHI MAURICIO Start: 06-21-2018 EKG 12-LEAD JONELLE BRA UN Plan of Treatment Date Care Activity Detail Author Start: 12-20-2023 End: 12-20-2023 Patient encounter procedure 12/20/2023 10:30 AM EST Office Visit [facility] [address] [facility] [address] [place] [address] Priya Aguero, SOLOMON [address] [facility] [address] [place] [address] [facility] Start: 07-02-2023 Influenza vaccination Influenza Vacc ine (#1) [facility] Start: 2012 Screening for malign ant neoplasm of breast Mammogram [facility] Start: 2002 Screening for malign ant neoplasm of cervix [facility] Start: 1993 Screening for malign ant neoplasm of cervix Pap Smear [facility] Start: 1972 Screening for malign ant neoplasm of colon [facility] Payers Date Payer Category Payer Medicare [id number] 2017 Medicaid MEDICAID [facility] [id number] 2017-Present [phone] [address] [place] [address] Medicaid [id number] 1972 Unknown [id number] 1972 Unknown [id number] 1972 Unknown [id number] 1972 Unknown [id number] 1972 Unknown [id number] 1957 Medicaid [id number] 1957 Medicare [id number] Social History Date Type Detail Facility Start: 08-23-2023 Sex Assigned At N [facility] Other Start: 08-09-2023 [facility] History of tobacco use [facility]igarette Smoker [facility] Start: 08-09-2023 End: 08-23-2023 Cigarettes smoked current (pack per day) - Reported 1 [facility] Start: 08-09-2023 Tobacco use and exposure Smokeless tobacco non-user [facility] Start: 08-09-2023 Alcohol intake Ex-drinker (finding) [facility] Start: 1970 Sex Assigned At Not on file [facility] Evaluation note 08-30-2023 Note Date & Type Note Facility 08-30-2023 Evaluation note Encounter Date Diagnosis Assessment Notes Aug, Screening mammogram for breast cancer (ICD-10 - Z12.31) [facility] Other Evaluation note 07-27-2023 Note Date & Type Note Facility 07-27-2023 Evaluation note Encounter Date Diagnosis Assessment Notes Jul, Bone lesion (ICD-10 - M89.9) Jul, Right hip pain (ICD-10 - M25.551) [facility] Other Evaluation note 06-16-2023 Note Date & Type Note Facility 06-16-2023 Evaluation note Encounter Date Diagnosis Assessment Notes Jun, Anxiety (ICD-10 - F41.9) Discussed tx options. Patient does not want to do counseling. Pharmaceutical options discussed. Start med. Patieint to follow up in 4-6 weeks, sooner if needed. Immediate eval for warning s/sx as discussed. Counseling and hotline information provided. Jun, Elevated blood pressure reading (ICD-10 - R03.0) Continue to monitor and followup in 1 month. [facility] Other Clinical Note 10-30-2021 Note Date & Type Note Facility 10-30-2021 Note PROCEDURE: XR HIP RT 2 3V W PELVIS HISTORY: Pain in right hip joint and low back pain; symptoms for one and half months, no known injury COMPARISON: None. FINDINGS: BONES:Subtle 1.3 cm round lucency within the lateral aspect of the femoral head. No fracture, dislocation, joint space narrowing. No degenerative osteophytes. SOFT TISSUES:No visible soft tissue swelling. EFFUSION:None visible. OTHER: Negative. IMPRESSION: 1. No acute bone abnormality or appreciable degenerative changes. 2. Questionable bone lesion versus trabecular summation artifact within the lateral aspect of the femoral head. If symptoms persist consider MRI of the right hip for further evaluation. Electronically authenticated by: JUSTYN CRISTINA Date: 2021-10-30 11:42 [facility] Evaluation note Note Date & Type Note Facility Evaluation note No Information [facility] [employer] Other History general Narrative - Reported Note Date & Type Note Facility History general Narrative - Reported Type Medical History Essential (primary) hypertension Medical History Anxiety disorder, unspecified Medical History Pain of right hip Surgical History RADHA Surgical History cholecystectomy Hospitalization History childbirth Hospitalization History seizures [facility] [employer] Other Summary Purpose Family History No Family History Records FoundNo Family History Records FoundNo Family History Records Found Advance Directives No Advanced Directives Records FoundNo Advanced Directives Records FoundNo Advanced Directives Records Found Reason for Referral Reason *FU 08/10 R hip pa in, xray, MRI pending. Diagnosis 1 Right hip pain (M25. 551) [facility]erral [facility] Referring Provider First Name Jonelle Referring Provider Last Name Hang Referring Provider Specialty [facility] cine Referred Organization [facility] Referred Provider Michael Tellez Jr. Referred Address ,[place], [place],[address] Referred Provider Specialty Orthopedic S urgery Referral Priority Routine General Notes Briana Mccarthy 03:38:48 PM >received today, attachments made, referral faxed Clinical Notes f: [id number] Additional Source Comments INFORMATION SOURCE (unrecogn ized section and content) DATE CREATED AUTHOR 06/23/2018 [facility] DATE CREATED AUTHOR AUTHOR'S ORGANIZ ATION 01/23/2022 [facility] DATE CREATED AUTHOR AUTHOR'S ORGANIZ ATION 12/04/[address] [facility] dical Specialists EPIC REASON FOR VISIT (unrecogniz ed section and content) high bpNo Informationmri res ultsmessage Care Teams (unrecognized sec tion and content) Strategic Client Executive Relationship Specialty Start Date End Date Jonelle Mauricio MD [address] [place] [address] PCP - General Family Medicine 08/09/23 FOR RECORDS PERTAINING TO PATIENTS WHO ARE OR HAVE BEEN ENROLLED IN A CHEMICAL DEPENDENCY/SUBSTANCEABUSE PROGRAM, SOME INFORMATION MAY BE OMITTED. This clinical summary was aggregated from multiple sources. Caution should be exercised in using it in the provision of clinical care. This summary normalizes information from multiple sources, and as a consequence, information in this document may materially change the coding, format and clinical context of patient data. In addition, data may be omitted in some cases. CLINICAL DECISIONS SHOULD BE BASED ON THE PRIMARY CLINICAL RECORDS. [email or web address]. provides no warranty or guarantee of the accuracy or completeness of information in this document.
--- NOTE | 2024-01-30 08:40 | XR_ITS ---
The [address] [address] Patient Name: FLOYD PEÑA MRN: [id number] date: 1970 Sex: F Assigned Patient Location: ER Current Patient Location: ER Accession/Order Number: [id number] Exam Date: 01/30/2024 08:50 Report Date: 01/30/2024 09:18 At the request of: [facility] Procedure: XR elbow RT min 3V EXAM: XR elbow RT min 3V INDICATION: swelling. COMPARISON: None. TECHNIQUE: Right elbow, 3 views FINDINGS: No acute fracture or dislocation. The joint spaces are intact. Tiny ossifications adjacent to the olecranon. No elbow joint effusion. Mild posterior elbow soft tissue swelling. XR/XR elbow RT min 3V IMPRESSION: 1. No acute osseous abnormality. 2. Dorsal elbow soft tissue swelling with underlying tiny calcifications adjacent to the olecranon which may be secondary to tendinosis or fragmentation of an enthesophyte. Electronically authenticated by: MELQUIADES MCKINNEY Date: 01/30/2024 09:18
[2024-01-30] MEDS: KETOROLAC TROMETHAMINE 30 MG/ML VIAL IM (09:09)
--- NOTE | 2024-01-30 15:59 | ED_ITS ---
HPI - Extremity Problem General Chief complaint: Extremity Problem, Nontraumatic Stated complaint: UPPER EXTREMITY INJURY/PAIN Time Seen by Provider: 01/30/24 08:34 Source: patient Mode of arrival: walk-in History of Present Illness HPI Narrative: The patient is coming to the ER with a right elbow pain that started few days ago after she was doing some cleaning at home, she did mention that she was doing some repetitive movements with the elbow the days before this happened. The patient mentioned that that she feels that her elbow is locked she cannot open up fully. No fall or trauma Related Data Previous Rx's ?Medication ?Instructions ?Recorded acetaminophen 650 mg 650 mg PO Q8H PRN pain #20 tabs 01/30/24 tablet,extended release (Tylenol 8 Hour) prednisone 20 mg tablet 40 mg (2 x 20 mg) PO DAILY 5 days 01/30/24 #10 tabs Allergies Allergy/AdvReac Type Severity Reaction Status Date / Time No Known Drug Allergies Allergy Verified 01/30/24 08:19 Review of Systems ROS Status of ROS 10 or more systems reviewed and unremark able except as noted in history and below Exam Narrative Exam Narrative: Nurses notes and vital signs reviewed and patient is not hypoxic. General: Well-appearing and in no apparent distress. Skin: Warm, dry, no pallor noted. No rash. Head: Normocephalic, atraumatic. Neck: Supple, non-tender. Eye: Pupils are equal, round and EOMI. No scleral icterus. Ears, Nose, Mouth, and Throat: TM are clear, no nasal mucosal hypertrophy. Oral mucosa is moist, no posterior oropharynx erythema, uvula is mid-line Cardiovascular: Regular Rate and Rhythm without murmur, gallop or rub. Respiratory: No accessory muscle use or respiratory distress. Lungs are clear to auscultation, no wheezing, rales or rhonchi Chest Wall: no tenderness Back: No midline thoracic or lumbar vertebral tenderness. No CVA tenderness Musculoskeletal: normal ROM, no calf or popliteal tenderness, no lower extremity edema/swelling ,the patient right elbow is swollen but there is no erythema there is effusion detected and there is no hotness or redness, the patient have a good radial pulse she have limited movement due to pain and also due to the effusion she cannot fully extend her elbow and flexion also is painful and limited to only 45 degrees. GI: Abdomen is soft, non-distended. Normal bowel sounds. No masses appreciated. No tenderness to palpation. No rebound, guarding, or rigidity noted. Neurological: A&O x4. No cranial nerve dysfunction observed. No truncal ataxia. Moves all extremities. Sensation intact. Psychiatric: Cooperative and interactive. Normal mood and affect. Constitutional Vital Signs, click to edit/add: Last Vital Signs Temp 98 F 01/30/24 08:14 Pulse 91 H 01/30/24 08:14 Resp 18 01/30/24 08:14 BP 168/95 H 01/30/24 08:14 Pulse Ox 100 01/30/24 08:14 O2 Del Method Room Air 01/30/24 08:14 Course Vital Signs Vital signs: Vital Signs Temperature 98 F 01/30/24 08:14 Pulse Rate 91 H 01/30/24 08:14 Respiratory Rate 18 01/30/24 08:14 Blood Pressure 168/95 H 01/30/24 08:14 Pulse Oximetry 100 01/30/24 08:14 Oxygen Delivery Method Room Air 01/30/24 08:14 Temperature 98 F 01/30/24 08:14 Pulse Rate 91 H 01/30/24 08:14 Respiratory Rate 18 01/30/24 08:14 Blood Pressure 168/95 H 01/30/24 08:14 Pulse Oximetry 100 01/30/24 08:14 Oxygen Delivery Method Room Air 01/30/24 08:14 MDM - Extremity (Nontraumatic) MDM Narrative Medical decision making narrative: The patient x-ray showed no acute pathology The patient will be treated as possible tendinitis and arthritis of the elbow she was started on prednisone as well as Tylenol referred to orthopedic as outpatient Sling and Eren wrap applied The patient is to follow up with primary care physician in next 2-3 days or to return to the emergency department should any of the signs or symptoms worsen or new symptoms develop. The patient agrees with the following Diagnosis and Treatment plan and the patient will be discharged home. Discharge Plan Discharge Stand Alone Forms: Portal Instructions Chief Complaint: Extremity Problem, Nontraumatic Clinical Impression: Arthritis of elbow, right Patient Disposition: Home, Self-Care Time of Disposition Decision: 10:09 Condition: Good Prescriptions / Home Meds: New prednisone 20 mg tablet 40 mg PO DAILY 5 Days Qty: 10 0RF acetaminophen [Tylenol 8 Hour] 650 mg tablet extended release 650 mg PO Q8H PRN (Reason: pain) Qty: 20 0RF Print Language: Bulgarian Instructions: Tendinitis (ED) Referrals: Jonelle Hess MD [Primary Care Provider] - 1 week Justyn Cobb MD [Physician] - 1 week Discharge Date/Time: 01/30/24 10:17
== END 2024-01-30 10:17 | disposition home or self-care (01) ==
PROVIDERS: Emergency Provider Emergency Medicine; PCP Family Medicine
DX: M19.021 Primary osteoarthritis, right elbow (principal)
CPT/HCPCS: 73080; 96372; 99284

== ENCOUNTER 2024-09-14 09:48 | Outpatient (OUT) | payer OTHER, MEDICAID, SELFPAY ==
--- NOTE | 2024-09-14 09:58 | MM_ITS ---
Patient Name: FLOYD PEÑA MR#: [id number] : 1970 Exam Date: 09/14/2024 Ordering Doctor: DR Jonelle Hess M.D. RADIOLOGY REPORT PROCEDURE: MM TOMOSYNTHESIS SCREENING BI COMPARISON: MM TOMOSYNTHESIS SCREENING BI, 09/13/2023. MG MAMM FARHAN SCRN W CAD DIG, 11/22/2014. INDICATIONS: Screening Calculator Name NCI Breast Cancer Risk Assessment Tool 5 Year Breast Cancer Risk 0.80% Lifetime Breast Cancer Risk 6.30% Personal Breast Cancer No Personal Ovarian Cancer No Treatments None Family Cancers Mother with uterine cancer at age ~38; Grandmother-maternal with uterine cancer at age ~55. LOCATION: [facility] BREAST COMPOSITION: There are scattered areas of fibroglandular density. FINDINGS: DIAGNOSTIC CATEGORY 1--NEGATIVE. RIGHT BREAST: No significant suspicious finding. No significant change has occurred. LEFT BREAST: No significant suspicious finding. No significant change has occurred. RECOMMENDATIONS: ROUTINE MAMMOGRAM AND CLINICAL EVALUATION IN 12 MONTHS. PLEASE NOTE: A NORMAL MAMMOGRAM DOES NOT EXCLUDE THE POSSIBILITY OF BREAST CANCER. A CLINICALLY SUSPICIOUS PALPABLE LUMP SHOULD BE BIOPSIED. Dictated by: Justyn Forbes M.D. on 09/14/2024 at 11:00 Approved by: Justyn Forbes M.D. on 09/14/2024 at 11:02
--- OUTSIDE RECORDS SUMMARY | 2024-09-14 10:08 | XMS_ITS | CCD ---
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 By: #### C DP, TROPI, DIME, CP ####[address] [place] [address] Bilirubin Ql (U) 0.48 mg/dL Normal 0.30-1.20 [facility] Comment on above: Performed By: #### C DP, TROPI, DIME, CP ####[place] [address] [facility] [place] [address] BUN/CRE Ratio 24 High 9-20 [facility] Comment on above: Performed By: #### C DP, TROPI, DIME, CP ####[place] [address] [facility] [place] [address] Calcium mass conc 10.0 mg/dL Normal 8.6-10.4 [facility] Comment on above: Performed By: #### C DP, TROPI, DIME, CP ####[facility] [place] [address] Chloride molar conc 102 mmol/L Normal 98-107 [facility] Comment on above: Performed By: #### C DP, TROPI, DIME, CP ####[facility] [place] [address] CO2 molar conc 22 mmol/L Normal 20-31 [facility] Comment on above: Performed By: #### C DP, TROPI, DIME, CP ####[facility] [place] [address] Creatinine mass conc 0.78 mg/dL Normal 0.50-0.90 [facility] Comment on above: Performed By: #### C DP, TROPI, DIME, CP ####[place] [address] [place] [address] GFR, Amer >60 Normal >60 [facility] Comment on above: Performed By: #### C DP, TROPI, DIME, CP ####[place] [address] [place] [address] GFR,non Amer >60 Normal >60 [facility] Comment on above: Performed By: #### C DP, TROPI, DIME, CP ####[place] [address] [place] [address] Glucose mass conc 86 mg/dL Normal 70-99 [facility] Comment on above: Performed By: #### C DP, TROPI, DIME, CP ####[place] [address] [place] [address] Potassium molar conc 3.7 mmol/L Normal 3.7-5.3 [facility] Comment on above: Performed By: #### C DP, TROPI, DIME, CP ####[place] [address] [place] [address] Protein mass conc 7.7 g/dL Normal 6.4-8.3 [facility] Comment on above: Performed By: #### C DP, TROPI, DIME, CP ####[facility] [place] [address] Sodium molar conc 141 mmol/L Normal 135-144 [facility] Comment on above: Performed By: #### C DP, TROPI, DIME, CP ####[facility] [place] [address] Urea nitrogen mass conc 19 mg/dL Normal 6-20 [facility] Comment on above: Performed By: #### C DP, TROPI, DIME, CP ####[facility] [place] [address] Albumin/Globulin mass ratio NOT REPORTED Normal 1.0-2.5 [facility] Comment on above: Performed By: #### C DP, TROPI, DIME, CP ####[facility] [place] [address] Staging: NOT REPORTED Normal [facility] Comment on above: Performed By: #### C DP, TROPI, DIME, CP ####[facility] [place] [address] D-Dimer Teston 06-21-2018 D-Dimer Test 0.22 mg/L FEU Normal 0.00-0.50 [facility] Comment on above: Result Comment: Elev ated [...] value of 98%). Performed By: #### C DP, TROPI, DIME, CP ####[facility] [place] [address] ED Noteon 06-21-2018 HIM IP Note OR Diabetes Manager Normal [facility] ED Provider Noteon 8 HIM IP Note OR Diabetes Manager Normal [facility] Progress Noteon 06-21-2018 HIM IP Note OR Diabetes Manager Normal [facility] Troponinon 06-21-2018 Troponin I.cardiac mass conc Normal [facility] Comment on above: Result Comment: Refe rence [...] information for diagnosis. Performed By: #### C KENNETH VARGAS DIME, CP ####[place] [address] [place] [address] Troponin T.cardiac mass conc ug/L Normal <0.03 [facility] Comment on above: Result Comment: Trop onin T results cannot be compared to Troponin-I results. Performed By: #### C KENNETH VARGAS DIME, CP ####[place] [address] [place] [address] XR CHEST (2 VW)on 06-21-2018 XR CHEST [...] by:LE Reynaigned by:Justyn Alarcon MD06/21/18inal result Normal [facility] Vital Signs Date Time Vital Sign Value Performing Clinician Facility 2024 11:26-0500 Body height 154.[address] [facility] 2024 11:260500 Body mass index (BMI) [Ratio] 24.3 kg/m2 [facility] 2024 11:260500 Body weight 58.[address] [facility] 2024 11:26-0500 Diastolic blood pressure 90 mm[Hg] [facility] 2024 11:260500 Heart rate 102 /min [facility] 2024 11:26-0500 Systolic blood pressure 152 mm[Hg] [facility] 07-25-2024 12:33-0400 Body height 154.[address] [facility] 07-25-2024 12:33-0400 Body mass index (BMI) [Ratio] 24.7 kg/m2 [facility] 07-25-2024 12:33-0400 Body temperature 96.7 [degF] [facility] 07-25-2024 12:33-0400 Body weight 59.[address] [facility] 07-25-2024 12:33-0400 Diastolic blood pressure 86 mm[Hg] [facility] 07-25-2024 12:33-0400 Heart rate 100 /min [facility] 07-25-2024 12:33-0400 Respiratory rate 16 /min [facility] 07-25-2024 12:33-0400 SaO2% (BldA) [Mass fraction] 98 % [facility] 07-25-2024 12:33-0400 Systolic blood pressure 138 mm[Hg] [facility] 05-22-2024 12:22-0400 Body height 153.[address] [facility] 05-22-2024 12:22-0400 Body mass index (BMI) [Ratio] 25.4 kg/m2 [facility] 05-22-2024 12:22-0400 Body temperature 97.6 [degF] [facility] 05-22-2024 12:22-0400 Body weight [address] [facility] 05-22-2024 12:22-0400 Diastolic blood pressure 79 mm[Hg] [facility] 05-22-2024 12:22-0400 Heart rate 98 /min [facility] 05-22-2024 12:22-0400 Respiratory rate 18 /min [facility] 05-22-2024 12:22-0400 SaO2% (BldA) [Mass fraction] 98 % [facility] 05-22-2024 12:22-0400 Systolic blood pressure 121 mm[Hg] [facility] 05-15-2024 12:01-0400 Body height 153.[address] [facility] 05-15-2024 12:01-0400 Body mass index (BMI) [Ratio] 25.7 kg/m2 [facility] 05-15-2024 12:01-0400 Body temperature 98.3 [degF] [facility] 05-15-2024 12:01-0400 Body weight 60.[address] [facility] 05-15-2024 12:01-0400 Heart rate 104 /min [facility] 05-15-2024 12:01-0400 Respiratory rate 1 /min [facility] 05-15-2024 12:01-0400 SaO2% (BldA) [Mass fraction] 98 % [facility] 06-16-2023 11:30-0400 Body height 153.67 cm Jonelle Mauricio Other [employer] Other 06-16-2023 11:30-0400 Body mass index (BMI) [Ratio] 25.54 kg/m2 Jonelle Mauricio Other [employer] [facility] [employer] Other 06-16-2023 11:30-0400 Body weight 60.33 kg Jonelle Mauricio Other [employer] Other 06-16-2023 11:30-0400 Diastolic blood pressure 82 mm[Hg] Jonelle Mauricio Other [employer] Other 06-16-2023 11:30-0400 SaO2% (BldA) [Mass fraction] 98 % Jonelle Mauricio Other [employer] Other 06-16-2023 11:30-0400 Systolic blood pressure 126 mm[Hg] Jonelle Mauricio Other [employer] Other Encounters Encounter Date Encounter Type Care Provider Facility Start: 2024 Patient encounter status [facility] Start: 2024 End: 2024 ambulatory [facility] Work Phone: Start: 2024 End: 2024 Patient encounter procedure [facility] Work Phone: Start: 07-25-2024 End: 07-25-2024 ambulatory [facility] Work Phone: Start: 07-25-2024 End: 07-25-2024 Patient encounter procedure [facility] [place] Work Phone: Start: 05-22-2024 End: 05-22-2024 ambulatory [facility] Work Phone: Start: 05-22-2024 End: 05-22-2024 Patient encounter procedure [facility] [place] Work Phone: Start: 05-15-2024 End: 05-15-2024 ambulatory [facility] Work Phone: Start: 05-15-2024 End: 05-15-2024 Patient encounter procedure [facility] [place] Work Phone: Start: 11-29-2023 End: 11-30-2023 ambulatory PRYIA AGUERO Not Available Start: 08-30-2023 End: 08-30-2023 ambulatory Jonelle Mauricio Other [employer] Other Start: 08-30-2023 Telephone encounter Jonelle Mauricio [facility] Start: 08-09-2023 End: 08-09-2023 ambulatory Jonelle Mauricio Other [employer] Other Start: 08-09-2023 Chart abstracting Priya CARBAJAL Work Phone: [facility] Start: 08-09-2023 Telephone encounter Jonelle Mauricio [facility] Start: 07-27-2023 End: 07-27-2023 ambulatory Jonelle Mauricio Other [employer] Other Start: 07-27-2023 Telephone encounter Jonelle Mauricio [facility] Start: 06-16-2023 End: 06-16-2023 ambulatory Jonelle Mauricio Other [employer] Other Start: 06-16-2023 Office outpatient vi sit 15 minutes Jonelle Mauricio [facility] Start: 12-16-2021 End: 12-16-2021 ambulatory SOLOMON LEAL Facility:[facility] Start: 12-10-2021 End: 12-10-[address] JONELLE MAURICIO Facility:[facility] Start: 10-30-2021 End: 10-31-[address] JUSTYN CRISTINA Facility:[facility] Start: 06-21-2018 End: 06-21-2018 Emergency department patient visit JONELLE MAURICIO [facility] Start: 05-20-2017 End: 05-20-2017 Gynecological examination normal Jonelle Mauricio Other [employer] Other Procedures Date Procedure Procedure Detail Performing Clinician Start: 06-21-2018 Radiologic exam chest 2 views JONELLE MAURICIO Start: 06-21-2018 Blood count complete auto&auto difrntl wbc JONELLE MAURICIO Start: 06-21-2018 Comprehensive metabolic panel JONELLE MAURICIO Start: 06-21-2018 D-DIMER, QUANTITATIVE M ODALYS MAURICIO Start: 06-21-2018 TROPONIN JONELLE BRISCOE Start: 06-21-2018 NEBULIZER TX INTERMITTENT JONELLE MAURICIO Start: 06-21-2018 EKG 12-LEAD JONELLE BRISCOE Plan of Treatment Date Care Activity Detail Author Start: 12-20-2023 End: 12-20-2023 Patient encounter procedure 12/20/2023 10:30 AM EST Office Visit [facility] [address] [facility] [address] [place] [id number] Priya Aguero PA [address] [facility] [address] [place] [address] [facility] Start: 07-02-2023 Influenza vaccination Influenza Vaccine (#1) [facility] Start: 2012 Screening for malignant neoplasm of breast Mammogram [facility] Start: 2002 Screening for malignant neoplasm of cervix [facility] Start: 1993 Screening for malignant neoplasm of cervix Pap Smear [facility] Start: 1972 Screening for malignant neoplasm of colon [facility] metabo lic 2000 panel - Serum or Plasma [facility] Holter monitor study [facility] MG Breast - bilatera l Screening [facility] Payers Date Payer Category Payer Medicare [id number] 2017 Medicaid MEDICAID [facility] [id number] 2017-Present [phone] [address] [place] [address] Medicaid [id number] 1972 Unknown [id number] 1972 Unknown [id number] 1972 Unknown [id number] 1972 Unknown [id number] 1972 Unknown [id number] 1959 Medicaid [id number] 1957 Medicare [id number] Medicaid [place] [employer] [id number] 201 [id number] Social History Date Type Detail Facility Start: 08-23-2023 Sex Assigned At N [facility] [employer] Other Start: 08-09-2023 Tobacco smoking status PAIS Smokes tobacco daily [facility] History of tobacco use Cigarette Smoker [facility] Start: 08-09-2023 End: 08-23-2023 Cigarettes smoked current (pack per day) - Reported 1 [facility] Start: 08-09-2023 Tobacco use and exposure Smokeless tobacco non-user [facility] Start: 08-09-2023 Alcohol intake Ex-drinker (finding) [facility] Start: 1970 Sex Assigned At Not on file [facility] Start: 05-15-2024 End: 07-25-2024 Tobacco smoking status [facility] Smoker (finding) [facility] Start: 1970 Sex Assigned At Female F [facility] NEGATED: Highlighted row [facility] Evaluation note 08-30-2023 Note Date & Type Note Facility 08-30-2023 Evaluation note Encounter Date Diagnosis Assessment Notes Aug, Screening mammogram for breast cancer (ICD-10 - Z12.31) [facility] [employer] Other Evaluation note 07-27-2023 Note Date & Type Note Facility 07-27-2023 Evaluation note Encounter Date Diagnosis Assessment Notes Jul, Bone lesion (ICD-10 - M89.9) Jul, Right hip pain (ICD-10 - M25.551) [facility] [employer] Other Evaluation note 06-16-2023 Note Date & [...] to monitor and followup in 1 month. [employer] Other Clinical Note 10-30-2021 Note Date & [...] by: JUSTYN CRISTINA Date: 2021-10-30 11:42 [facility] Evaluation note Note Date & Type Note Facility Evaluation note No Information [employer] Other Evaluation note Note Date & Type Note Facility Evaluation note No assessment information availa [facility] Work Phone: Evaluation note Note Date & Type Note Facility Evaluation note Diagnosis Onset Date Contact dermatitis [facility] Work Phone: Evaluation note Note Date & Type Note Facility Evaluation note Diagnosis Onset Date Contact dermatitis acute Contact dermatitis [facility] Work Phone: Evaluation note Note Date & Type Note Facility Evaluation note Diagnosis Onset Date Sand flea infestation acute Essential (primary) hypertension acute Palpitations acute Screening for colon cancer a cute Screening mammogram for breast cancer [facility] Work Phone: History general Narrative - Reported Note Date & Type Note Facility History general Narrative - Reported Type Medical History Essential (primary) hypertension Medical History Anxiety disorder, unspecified Medical History Pain of right hip Surgical History RADHA Surgical History cholecystectomy Hospitalization History childbirth Hospitalization History seizures [employer] Other Summary Purpose Family History Relationship Condition Age at Onset Recorded Date/T pam father Myocardial infarction Unknown Unknown mother Family history of other condition Unknown Advance Directives Advance Directive Response Recorded Date/ Time Advance Directives No May 15 11:51am Advance Directive Response Recorded Date/ Time Advance Directives No July 12:23pm Advance Directive Response Recorded Date/ Time Advance Directives No July 11:23am Reason for Referral Reason *FU 08/10 R hip pa in, xray, MRI pending. Diagnosis 1 Right hip pain (M25. 551) Referral Organization [facility] Referring Provider First Name Jonelle Referring Provider Last Name Hang Referring Provider Specialty Family [facility] Referred Organization [facility] Referred Provider Michael Tellez Jr. Referred Address ,[place], [place],[address] Referred Provider Specialty Orthopedic S urgery Referral Priority Routine General Notes Briana Mccarthy 03:38:48 PM >received today, attachments made, referral faxed Clinical Notes f: [id number] Chief Complaint and Reason for Visit Chief Complaint rash on left ear, si de, arm Chief Complaint rash on left ear, si de, arm Rash spreading down thighs Reason for Visit Contact dermatitis Chief Complaint rash on left ear, si de, arm Rash spreading down thighs Rash Reason for Visit Contact dermatitis Contact dermatitis Chief Complaint Rash wellness/refill Reason for Visit Sand flea infestatio n Essential (primary) hypertension Palpitations Screening for colon cancer Screening mammogram for breast cancer Additional Source Comments INFORMATION SOURCE (unrecogn ized section and content) DATE CREATED AUTHOR 06/23/2018 [facility] DATE CREATED AUTHOR AUTHOR'S ORGANIZ ATION 01/23/2022 [facility] DATE CREATED AUTHOR AUTHOR'S ORGANIZ ATION 12/04/2023 [facility] Specialists EPIC REASON FOR VISIT (unrecogniz ed section and content) high bpNo Informationmri res ultsmessage Care Teams (unrecognized sec tion and content) Phone Manager Relationship Specialty Start Date End Date Jonelle Mauricio MD [address] [place] [phone] PCP - General Family Medicine 08/09/23 Team Status: Active Member Role Status Dates Jonelle Mauricio MD Primary Care Provider Active Team Status: Inactive Member Role Status Dates Jonelle Mauricio MD Primary Care Provider Active Start: May 15, 2024 End: May 15, 2024 Elvi Anderson APRN Attending Provider Active S tart: May 15, 2024 End: May 15, 2024 Team Status: Inactive Member Role Status Dates Jonelle Maurciio MD Primary Care Provider Active Start: May 22, 2024 End: May 22, 2024 Elvi Anderson APRN Attending Provider Active S tart: May 22, 2024 End: May 22, 2024 Team Status: Inactive Member Role Status Dates Jonelle Mauricio MD Primary Care Provider Active Start: July 25, 2024 End: July 25, 2024 Estella Arguello APRN Attending Provider Active Start: July 25, 2024 End: July 25, 2024 Team Status: Inactive Member Role Status Dates Jonelle Mauricio MD Primary Care Provide r, Attending Provider Active Start: 2024 End: 2024 Goals (unrecognized section and content) Goals may be documented in a n alternate section FOR RECORDS PERTAINING TO PATIENTS WHO ARE [...] BE BASED ON THE PRIMARY CLINICAL RECORDS. [facility] [employer] [facility]. provides no warranty or guarantee of the accuracy or completeness of information in this document.
== END 2024-09-14 09:49 | disposition home or self-care (01) ==
LOC: MAMMO 09:49
PROVIDERS: PCP Family Medicine; Visit Provider Family Medicine
DX: R00.2 Palpitations (principal); Z12.31 Encounter for screening mammogram for malignant neoplasm of breast; Z80.8 Family history of malignant neoplasm of other organs or systems
CPT/HCPCS: 77063; 77067

== ENCOUNTER 2024-09-14 09:52 | Outpatient (OUT) | payer OTHER, MEDICAID, SELFPAY ==
--- OUTSIDE RECORDS SUMMARY | 2024-09-14 10:16 | XMS_ITS | CCD ---
Author Organization [facility] Care Team Providers Care Casino Investigator Name Role Phone JONELLE MAURICIO Unavailable Unavailable KARIN, VESELIN Unavailable Unavailable GRECHSOLOMON OLIVER Consulting Unavailable SHANNAN, DR TELLES Admitting Unavailable HAY, DR TELLSE Attending Unavailable HANG, DR JONELLE Martínez Primary [...] Acetaminophen / HYDROcodone Drug Allergy 05-05-20 17 [facility] Repository (1 source) Iodine (And Iodine Containting Drugs) Drug allergy (disorder) 05-05-20 17 [facility] Repository (5 sources) Latex Drug allergy (disorder) 05-05-20 17 rash [facility] Repository (4 sources) Acetaminophen / oxyCODONE Drug Allergy anaphylaxis [facility] [employer] Other (4 sources) Contrast media Propensity to adverse reactions 12-15-19 14 Unknown [employer] Other (4 sources) Latex Propensity to adverse reactions rash [facility] [employer] Other (4 sources) Vicodin *ANALGESICS - OPIOID* Propensity to adverse reactions Unknown [employer] Other (4 sources) Cont[employer] *MEDICAL DEVICES AND SUPP Propensity to adverse reactions Comment:Iodine contrast [employer] Other (1 source) Acetaminophen / HYDROcodone Drug Allergy 05-31-20 16 Unknown [facility] (1 source) Iodine Drug Allergy 01-18-20 12 Rash [facility] (4 sources) Acetaminophen Drug Allergy 05-15-20 24 anaphylaxis [facility] (4 sources) HYDROcodone Drug Allergy 05-15-20 24 Anaphylaxis [facility] (4 sources) oxyCODONE Drug Allergy 05-15-20 anaphylaxis [facility] (4 sources) [employer] *MEDI Allergy to substance 07-22-20 Comment:Iodine contrast [facility] Medications Current Medications Medication Drug Class(es) Dates [...] 06-21-2018 [facility] Other aftercare (1 source) Other supervisor intermediates (current) drug therapy; Translations: [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 Paxton Kim Basophils/100 WBC (Bld) 0.8 % Normal 0.2-2.0 [facility] Comment on above: Performed By: #### C BC #### [facility] [address] [place] [address] Dr. Paxton Kim EO # 0.1 103/ul Normal 0.0-0.7 [facility] Comment on above: Performed By: #### C BC #### [facility] [address] [place] [address] Dr. Paxton Kim Eosinophils/100 WBC (Bld) 2.2 % Normal 0.9-7.0 [facility] Comment on above: Performed By: #### C BC #### [facility] [address] [place] [address] Dr. Paxton Kim Erythrocyte distribution width (RBC) [Ratio] 13.6 % Normal 11.0-15.0 [facility] Comment on above: Performed By: #### C BC #### [facility] [address] [place] [address] Dr. Paxton Kim Hematocrit (Bld) [Volume fraction] 44.1 % Normal 36.0-48.0 [facility] Comment on above: Performed By: #### C BC #### [facility] [address] [place] [address] Dr. Paxton Kim Hemoglobin (Bld) [Mass/Vol] 14.7 g/dL Normal 12.0-16.0 [facility] Comment on above: Performed By: #### C BC #### [facility] [address] [place] [address] Dr. Paxton Kim IG # 0.03 10e3/ul Normal 0.00-0.03 [facility] Comment on above: Performed By: #### C BC #### [facility] [address] [place] [address] Dr. Paxton Kim IG % 0.6 % Critically high 0.0-0.5 [facility] Comment on above: Performed By: #### C BC #### [facility] [address] [place] [address] Dr. Paxton Kim LYMPH # 1.1 103/ul Critically low 1.2-3.8 [facility] Comment on above: Performed By: #### C BC #### [facility] [address] [place] [address] Dr. Paxton Kim Lymphocytes/100 WBC (Bld) 22.5 % Normal 20.5-60.0 [facility] Comment on above: Performed By: #### C BC #### [facility] [address] [place] [address] Dr. Paxton Kim MANUAL DIFF REQ NO Normal [facility] Comment on above: Performed By: #### C BC #### [facility] [address] [place] [address] Dr. Paxton Kim MCH (RBC) [Entitic mass] 31.1 pg Normal 26.7-34.0 [facility] Comment on above: Performed By: #### C BC #### [facility] [address] [place] [address] Dr. Paxton Kim MCHC (RBC) [Mass/Vol] 33.3 g/dL Normal 29.9-35.2 [facility] Comment on above: Performed By: #### C BC #### [facility] [address] [place] [address] Dr. Paxton Kim MCV (RBC) [Entitic vol] 93.4 fL Normal 81.0-99.0 [facility] Comment on above: Performed By: #### C BC #### [facility] [address] [place] [address] Dr. Paxton Kim MONO # 0.6 103/ul Normal 0.3-0.8 [facility] Comment on above: Performed By: #### C BC #### [facility] [address] [place] [address] Dr. Paxton Kim Monocytes/100 WBC (Bld) 11.9 % Normal 1.7-12.0 [facility] Comment on above: Performed By: #### C BC #### [facility] [address] [place] [address] Dr. Paxton Kim NEUT # 3.0 103/ul Normal 1.4-6.5 [facility] Comment on above: Performed By: #### C BC #### [facility] [address] [place] [address] Dr. Paxton Kim Neutrophils/100 WBC (Bld) 62.0 % Normal 43.0-75.0 [facility] Comment on above: Performed By: #### C BC #### [facility] [address] [place] [address] Dr. Paxton Kim Platelet mean volume (Bld) [Entitic vol] 9.1 fL Critically low 9.5-13.5 [facility] Comment on above: Performed By: #### C BC #### [facility] [address] [place] [address] Dr. Paxton Kim PLT 271 103/ul Normal 150-450 [facility] Comment on above: Performed By: #### C BC #### [facility] [address] [place] [address] Dr. Paxton Kim RBC 4.72 106/ul Normal 4.20-5.40 [facility] Comment on above: Performed By: #### C BC #### [facility] [address] [place] [address] Dr. Paxton Kim WBC 4.9 103/ul Normal 4.0-11.0 [facility] Comment on above: Performed By: #### C BC #### [facility] [address] [place] [address] Dr. Paxton Kim CTA CHEST WO W [...] NATHAN ARZOLA Date: 2021-12-16 20:15 Normal [facility]on 12-02 SARS-CoV-2 (COVID-19) RNA SHAYLA+probe Ql (Unsp spec) Not detected Normal NOT DETECTED [facility] Comment on above: Result Comment: This test is not yet approved or cleared by the [place] FDA. When there are no FDA-approved or cleared tests available, and other criteria are met, FDA can make tests available under an emergency access mechanism called an Emergency Use Authorization (EUA). The EUA for this test is supported by the [place] of Health and Human Service's (HHS's) declaration [...] SARS-CoV-2. Performed By: #### C VDTB #### [facility] [address] [place] [address] Dr. Paxton Kim ER URINE PROFILEon 2 Bilirubin Ql (U) Negative Normal NEGATIVE [facility] Comment on above: Performed By: #### E RUR #### [facility] [address] [place] [address] Dr. Paxton Kim Clarity (U) CLEAR Normal CLEAR [facility] Comment on above: Performed By: #### E RUR #### [facility] [address] [place] [address] Dr. Paxton Kim Color (U) YELLOW Normal YELLOW [facility] Comment on above: Performed By: #### E RUR #### [facility] [address] [place] [address] Dr. Paxton CHAVEZNena A micrscopic examination will be performed if indicated. Normal [facility] Comment on above: Performed By: #### E RUR #### [facility] [address] [place] [address] Dr. Paxton Kim Glucose Ql (U) Negative Normal NEGATIVE [facility] [place] Comment on above: Performed By: #### E RUR #### [facility] [address] [place] [address] Dr. Paxton Kim Hemoglobin Ql (U) Negative Normal NEGATIVE [facility] Comment on above: Performed By: #### E RUR #### [facility] [address] [place] [address] Dr. Paxton Kim Ketones Ql (U) Negative Normal NEGATIVE [facility] [place] Comment on above: Performed By: #### E RUR #### [facility] [address] [place] [address] Dr. Paxton Kim LEUKOCYTES Negative Normal NEGATIVE [facility] Comment on above: Performed By: #### E RUR #### [facility] [address] [place] [address] Dr. Paxton Kim Nitrite Ql (U) Negative Normal NEGATIVE [facility] Comment on above: Performed By: #### E RUR #### [facility] [address] [place] [address] Dr. Paxton Kim pH (U) 5.5 [pH] Normal 5-9 [facility] Comment on above: Performed By: #### E RUR #### [facility] [address] [place] [address] Dr. Paxton Kim SPEC GRAVITY >=1.030 Abnormal 1.005-<=1.025 [facility] Comment on above: Performed By: #### E RUR #### [facility] [address] [place] [address] Dr. Paxton Kim UA PROTEIN Negative Normal NEGATIVE/ TRACE [facility] Comment on above: Performed By: #### E RUR #### [facility] [address] [place] [address] Dr. Paxton Kim UR MICRO IND NOT INDICATED Normal [facility] Comment on above: Performed By: #### E RUR #### [facility] [address] [place] [address] Dr. Paxton Kim Urobilinogen Qn (U) 0.2 {Alex'U}/dL Normal 0.2 - 1. 0 [facility] Comment on above: Performed By: #### E RUR #### [facility] [address] [place] [address] Dr. Paxton Kim LACTATE/LACTIC ACIDon 2021 Lactate [Moles/Vol] 1.1 mmol/L Normal 0.7-2.0 [facility] Comment on above: Performed By: #### L ACT #### [facility] [address] [place] [address] Dr. Paxton Kim PROF 14(COMP METB)on Albumin [Mass/Vol] 3.7 g/dL Normal 3.5-5.0 [facility] Comment on above: Performed By: #### H STROPN, CMP #### [facility] [address] [address] [address] Paxton Kim Albumin/Globulin [Mass ratio] 1.0 {ratio} Normal [facility] Comment on above: Performed By: #### H STROPN, CMP #### [facility] [address] [address] [address] Paxton Kim ALP [Catalytic activity/Vol] 111 U/L Normal 38-126 [facility] Comment on above: Performed By: #### H STROPN, CMP #### [facility] [address] [address] [address] Paxton Kim ALT [Catalytic activity/Vol] 32 U/L Normal 9-52 [facility] Comment on above: Performed By: #### H STROPN, CMP #### [facility] [address] [address] [address] Paxton Kim Anion gap [Moles/Vol] 11.5 mmol/L Normal [facility] Comment on above: Performed By: #### H STROPN, CMP #### [facility] [address] [address] [address] Paxton Kim AST [Catalytic activity/Vol] 21 U/L Normal 14-36 [facility] Comment on above: Performed By: #### H STROPN, CMP #### [facility] [address] [address] [address] Paxton Kim Bilirubin [Mass/Vol] 0.2 mg/dL Normal 0.2-1.3 [facility] Comment on above: Performed By: #### H STROPN, CMP #### [facility] [address] [address] [address] Paxton Kim Calcium [Mass/Vol] 9.3 mg/dL Normal 8.4-10.2 [facility] Comment on above: Performed By: #### H STROPN, CMP #### [facility] [address] [address] [address] Paxton Kim Chloride [Moles/Vol] 105 mmol/L Normal 98-107 [facility] Comment on above: Performed By: #### H STROPN, CMP #### [facility] [address] [address] [address] Paxton Kim CO2 [Moles/Vol] 22.9 mmol/L Normal 22.0-30.0 [facility] Comment on above: Performed By: #### H STROPN, CMP #### [facility] [address] [address] [address] Paxton Kim Creatinine [Mass/Vol] 0.60 mg/dL Normal 0.52-1.04 [facility] Comment on above: Performed By: #### H STROPN, CMP #### [facility] [address] [address] [address] Paxton Kim EGFR-AF [place] >60 Normal >=60 [facility] Comment on above: Performed By: #### H STROPN, CMP #### [facility] [address] [address] [address] Paxton Kim EGFR-NON AF [place] >60 Normal >=60 [facility] Comment on above: Performed By: #### H STROPN, CMP #### [facility] [address] [address] [address] Paxton Kim Globulin (S) [Mass/Vol] 3.6 g/dL Normal [facility] Comment on above: Performed By: #### H STROPN, CMP #### [facility] [address] [address] [address] Paxton Kim Glucose [Mass/Vol] 109 mg/dL Critically high 74-106 [facility] Comment on above: Performed By: #### H STROPN, CMP #### [facility] [address] [address] [address] Paxton Kim Potassium [Moles/Vol] 3.4 mmol/L Normal 3.4-5.0 [facility] Comment on above: Performed By: #### H STROPN, CMP #### [facility] [address] [address] [address] Paxton Kim Protein [Mass/Vol] 7.3 g/dL Normal 6.1-8.2 [facility] Comment on above: Performed By: #### H STROPN, CMP #### [facility] [address] [address] [address] Paxton Kim Sodium [Moles/Vol] 136 mmol/L Critically low 137-145 [facility] Comment on above: Performed By: #### H STROPN, CMP #### [facility] [address] [address] [address] Paxton Kim Urea nitrogen [Mass/Vol] 10.0 mg/dL Normal 7.0-17.0 [facility] Comment on above: Performed By: #### H STROPN, CMP #### [facility] [address] [address] [address] Paxton Kim Urea nitrogen/Creatinine [Mass ratio] 16.7 mg/mg Normal [facility] Comment on above: Performed By: #### H STROPN, CMP #### [facility] [address] [address] [address] Paxton Kim TROPONIN, HIGH SENSITIVITYon 12-16-2021 HSTROP 6.4 pg/mL Normal 4.0-35.5 [facility] Comment on above: Result Comment: CUT- OFF POINTS HAVE BEEN ESTABLISHED BASED ON THE FOURTH UNIVERSAL DEFINITIONS OF MYOCARDIAL INFARCTION. THE UPPER REFERENCE LIMIT (URL) OF TROPONIN, DEFINED THE 99TH PERCENTILE OF cTnI DISTRIBUTION IN A REFERENCE POPULATION, HAS BEEN CONFIRMED THE DECISION THRESHOLD FOR DE DIAGNOSIS. Performed By: #### H J CARLOSPN, CMP #### [facility] [address] [place] [address] Dr. Paxton Kim Covid-19 PCR ([facility])on SARS-CoV-2 (COVID-19) RNA SHAYLA+probe Ql (Unsp spec) Not detected Normal NOT DETECTED [facility] Comment on above: Result Comment: This test is not yet approved or cleared by the [place] FDA. When there are no FDA-approved or cleared tests available, and other criteria are met, FDA can make tests available under an emergency access mechanism called an Emergency Use Authorization (EUA). The EUA for this test is supported by the [place] of Health and Human Service's (HHS's) declaration [...] consistent with SARS-CoV-2. Performed By: #### [facility] #### [facility] [address] [place], [place] [address] Dr. Paxton Kim XR LSPINE MIN 4 [...] JUSTYN CRISTINA Date: 2021-10-30 11:37 Normal [facility] CBC with Diffon 06-21-2018 Abs. Basophil 0.00 k/uL Normal 0.0-0.2 [facility] Comment on above: Performed By: #### C KENNETH VARGAS DIME, CP ####[facility] [place] [address] Abs.Neutrophil (Seg) 4.80 k/uL Normal 2.5-7.0 [facility] Comment on above: Performed By: #### C DP, KALA COOPER, CP ####[facility], [place] [id number] Auto Diff Performed YES Normal [facility] Comment on above: Performed By: #### C DP, TROPI, DIME, CP ####[facility] [place] [address] Basophils/100 WBC Auto (Bld) 1 % Normal 0-2 [facility] Comment on above: Performed By: #### C DP, TROPI, DIME, CP ####[facility] [place] [address] Eosinophils Auto #/vol (Bld) 0.10 10*3/uL Normal 0.0-0.4 [facility] Comment on above: Performed By: #### C DP, TROPI, DIME, CP ####[address] [place] [address] Eosinophils/100 WBC Auto (Bld) 1 % Normal 0-5 [facility] Comment on above: Performed By: #### C DP, TROPI, DIME, CP ####[address] [place] [address] Erythrocyte distribution width Auto Ratio (RBC) 14.2 % Normal 12.1-15.2 [facility] Comment on above: Performed By: #### C DP, TROPI, DIME, CP ####[facility] [place] [address] Hematocrit Auto Volume Fraction (Bld) 44.0 % Normal 36-46 [facility] Comment on above: Performed By: #### C DP, TROPI, DIME, CP ####[facility] [place] [address] Hemoglobin mass conc (Bld) 15.0 g/dL Normal 12.0-16.0 [facility] Comment on above: Performed By: #### C DP, TROPI, DIME, CP ####[facility] [place] [address] Lymphocytes Auto #/vol (Bld) 1.90 10*3/uL Normal 1.0-4.8 [facility] Comment on above: Performed By: #### C DP, KALA COOPER, CP ####[facility] [place] [address] Lymphocytes/100 WBC Auto (Bld) 26 % Normal 15-40 [facility] Comment on above: Performed By: #### C DP, VIJAYAICHRISTENE, CP ####[address] [place] [address] MCH Auto Entitic mass (RBC) 31.9 pg Normal 26-34 [facility] Comment on above: Performed By: #### C DP, CHRISTEN COOPERE, CP ####[address] [place] [address] [place] [address] MCHC Auto mass conc (RBC) 34.2 g/dL Normal 31-37 [facility] Comment on above: Performed By: #### C DP, CHRISTEN COOPERE, CP ####[address] [address] [place] [address] MCV Auto Entitic volume (RBC) 93.3 fL Normal 80-100 [facility] Comment on above: Performed By: #### C DP, CHRISTEN COOPERE, CP ####[facility] [place] [address] Monocytes Auto #/vol (Bld) 0.50 10*3/uL Normal 0.0-1.0 [facility] Comment on above: Performed By: #### C DP, CHRISTEN COOPERE, CP ####[address] [place] [address] Monocytes/100 WBC Auto (Bld) 7 % Normal 4-8 [facility] Comment on above: Performed By: #### C DP, TROPICHRISTENE, CP ####[address] [place] [address] Neutrophil (Seg) 65 % Normal 47-75 [facility] Comment on above: Performed By: #### C KENNETH VARGAS DIME, CP ####[address] [place] [place] [address] Platelets Auto #/vol (Bld) 339 10*3/uL Normal 140-450 [facility] Comment on above: Performed By: #### C DPKENNETH DIME, CP ####[address] [place] [address] RBC Auto #/vol (Bld) 4.71 10*6/uL Normal 4.0-5.2 [facility] Comment on above: Performed By: #### C KENNETH VARGAS DIME, CP ####[address] [place] [address] WBC Auto #/vol (Bld) 7.3 10*3/uL Normal 3.5-11.0 [facility] Comment on above: Performed By: #### C KENNETH VARGAS DIME, CP ####[address] [place] [address] Abs.Imm.Granulocyte NOT REPORTED Normal 0.00-0.30 [facility] Comment on above: Performed By: #### C DPKENNETH DIME, CP ####[address] [place] [address] Immature granulocytes #/vol (Bld) NOT REPORTED Normal 0 [facility] Comment on above: Performed By: #### C DPKENNETH DIME, CP ####[address] [place] [address] NRBC Automated NOT REPORTED Normal [facility] Comment on above: Performed By: #### C DP, KALA COOPER, CP ####[facility] [place] [address] Platelet mean volume Auto Entitic volume (Bld) NOT REPORTED Normal 6.0-12.0 [facility] Comment on above: Performed By: #### C DP, TROPICHRISTENE, CP ####[facility] [place] [address] Platelets Auto #/vol (Bld) NOT REPORTED Normal [facility] Comment on above: Performed By: #### C DP, TROPICHRISTENE, CP ####[facility] [place] [address] RBC morphology finding Nom (Bld) NOT REPORTED Normal [facility] Comment on above: Performed By: #### C DP, TROPICHRISTENE, CP ####[facility] [place] [address] WBC Morphology NOT REPORTED Normal [facility] Comment on above: Performed By: #### C DP, VIJAYAICHRISTENE, CP ####[facility] [place] [address] Comp Metabolic Profon 2017 (cont.) Normal [facility] Comment on above: Result Comment: Aver age GFR for 40-49 years old: 99 mL/min/1.73sq mChronic Kidney Disease: <60 mL/min/1.73sq mKidney failure: <15 mL/min/1.73sq meGFR calculated using average adult body mass. Additional eGFR calculator available at:http://www.Markado.com/multiple_crcl_2012.htm Performed By: #### C DP, TROPCHRISTEN ZayasE, CP ####[facility] [place] [address] Albumin mass conc 5.0 g/dL Normal 3.5-5.2 [facility] Comment on above: Performed By: #### C DP, CHRISTEN COOPERE, CP ####[facility] [place] [address] Alkaline Phos 105 U/L High 35-104 [facility] Comment on above: Performed By: #### C DP, TROPI, DIME, CP ####[address] [place] [address] ALT enzyme act/vol 27 U/L Normal 5-33 [facility] Comment on above: Performed By: #### C DP, TROPI, DIME, CP ####[address] [place] [address] Anion gap 3 molar conc 17 mmol/L Normal 9-17 [facility] Comment on above: Performed By: #### C DP, TROPI, DIME, CP ####[address] [place] [address] AST enzyme act/vol 29 U/L Normal <32 [facility] Comment on above: Performed By: #### C DP, TROPI, DIME, CP ####[address] [place] [address] Bilirubin Ql (U) 0.48 mg/dL Normal 0.30-1.20 [facility] Comment on above: Performed By: #### C DP, TROPI, DIME, CP ####[address] [place] [address] BUN/CRE Ratio 24 High 9-20 [facility] Comment on above: Performed By: #### C DP, TROPI, DIME, CP ####[address] [place] [address] Calcium mass conc 10.0 mg/dL Normal 8.6-10.4 [facility] Comment on above: Performed By: #### C DP, TROPI, DIME, CP ####[facility] [facility] [address] [place] [address] Chloride molar conc 102 mmol/L Normal 98-107 [facility] Comment on above: Performed By: #### C DP, TROPI, DIME, CP ####[facility] [place] [address] CO2 molar conc 22 mmol/L Normal 20-31 [facility] Comment on above: Performed By: #### C DP, TROPI, DIME, CP ####[facility] [place] [address] Creatinine mass conc 0.78 mg/dL Normal 0.50-0.90 [facility] Comment on above: Performed By: #### C DP, TROPI, DIME, CP ####[place] [address] [place] [address] GFR, Amer >60 Normal >60 [facility] Comment on above: Performed By: #### C DP, TROPI, DIME, CP ####[place] [address] [place] [place] [address] GFR,non Amer >60 Normal >60 [facility] Comment on above: Performed By: #### C DP, TROPI, DIME, CP ####[place] [address] [place] [address] Glucose mass conc 86 mg/dL Normal 70-99 [facility] Comment on above: Performed By: #### C DP, TROPI, DIME, CP ####[place] [address] [place] [place] [address] Potassium molar conc 3.7 mmol/L Normal 3.7-5.3 [facility] Comment on above: Performed By: #### C DP, TROPI, DIME, CP ####[place] [address] [place] [address] Protein mass conc 7.7 g/dL Normal 6.4-8.3 [facility] Comment on above: Performed By: #### C DP, TROPI, DIME, CP ####[facility] [place] [address] Sodium molar conc 141 mmol/L Normal 135-144 [facility] Comment on above: Performed By: #### C DP, TROPI, DIME, CP ####[facility] [place] [address] Urea nitrogen mass conc 19 mg/dL Normal 6-20 [facility] Comment on above: Performed By: #### C DP, TROPI, DIME, CP ####[facility] [place] [address] Albumin/Globulin mass ratio NOT REPORTED Normal 1.0-2.5 [facility] Comment on above: Performed By: #### C DP, TROPI, DIME, CP ####[facility] [place] [address] Staging: NOT REPORTED Normal [facility] Comment on above: Performed By: #### C DP, TROPI, DIME, CP ####[facility] [place] [place] [address] D-Dimer Teston 06-21-2018 D-Dimer Test 0.22 mg/L FEU Normal 0.00-0.50 [facility] Comment on above: Result Comment: Elev ated [...] By: #### C DP, TROPI, DIME, CP ####[facility] [place] [address] ED Noteon 06-21-2018 HIM IP Note OR Diamond Sander Normal [facility] ED Provider Noteon 8 HIM IP Note OR Diamond Sander Normal [facility] Progress Noteon 06-21-2018 HIM IP Note OR Diamond Sander Normal [facility] Troponinon 06-21-2018 Troponin I.cardiac mass conc Normal [facility] Comment on above: Result Comment: Refe [...] By: #### C KENNETH VARGAS DIME, CP ####[place] [address] [facility] [address] Troponin T.cardiac mass conc ug/L Normal <0.03 [facility] Comment on above: Result Comment: Trop onin T results cannot be compared to Troponin-I results. Performed By: #### C KENNETH VARGAS DIME, CP ####[place] [address] [place] [address] XR CHEST (2 VW)on 06-21-2018 XR CHEST [...] by:LE Reynaigned by:Justyn Alarcon MD06/21/18inal result Normal [facility] Vital Signs Date Time Vital Sign Value Performing Clinician Facility 2024 11:26-0500 Body height 154.94 cm [facility] 2024 11:260500 Body mass index (BMI) [Ratio] 24.3 kg/m2 [facility] 2024 11:260500 Body weight 58.51 kg [facility] 2024 11:26-0500 Diastolic blood pressure 90 mm[Hg] [facility] 2024 11:260500 Heart rate 102 /min [facility] 2024 11:26-0500 Systolic blood pressure 152 mm[Hg] [facility] 07-25-2024 12:33-0400 Body height 154.94 cm [facility] 07-25-2024 12:33-0400 Body mass index (BMI) [Ratio] 24.7 kg/m2 [facility] 07-25-2024 12:33-0400 Body temperature 96.7 [degF] [facility] [facility] 07-25-2024 12:33-0400 Body weight 59.42 kg [facility] 07-25-2024 12:33-0400 Diastolic blood pressure 86 mm[Hg] [facility] 07-25-2024 12:33-0400 Heart rate 100 /min [facility] 07-25-2024 12:33-0400 Respiratory rate 16 /min [facility] [place] [facility] 07-25-2024 12:33-0400 SaO2% (BldA) [Mass fraction] 98 % [facility] 07-25-2024 12:33-0400 Systolic blood pressure 138 mm[Hg] [facility] 05-22-2024 12:22-0400 Body height 153.67 cm [facility] 05-22-2024 12:22-0400 Body mass index (BMI) [Ratio] 25.4 kg/m2 [facility] 05-22-2024 12:22-0400 Body temperature 97.6 [degF] [facility] [place] [facility] 05-22-2024 12:22-0400 Body weight 60 kg [facility] 05-22-2024 12:22-0400 Diastolic blood pressure 79 mm[Hg] [facility] 05-22-2024 12:22-0400 Heart rate 98 /min [facility] 05-22-2024 12:22-0400 Respiratory rate 18 /min [facility] [place] [facility] 05-22-2024 12:22-0400 SaO2% (BldA) [Mass fraction] 98 % [facility] 05-22-2024 12:22-0400 Systolic blood pressure 121 mm[Hg] [facility] 05-15-2024 12:01-0400 Body height 153.67 cm [facility] 05-15-2024 12:01-0400 Body mass index (BMI) [Ratio] 25.7 kg/m2 [facility] 05-15-2024 12:01-0400 Body temperature 98.3 [degF] [facility] [place] [facility] 05-15-2024 12:01-0400 Body weight 60.78 kg [facility] 05-15-2024 12:01-0400 Heart rate 104 /min [facility] 05-15-2024 12:01-0400 Respiratory rate 1 /min [facility] [place] [facility] 05-15-2024 12:01-0400 SaO2% (BldA) [Mass fraction] 98 % [facility] 06-16-2023 11:30-0400 Body height 153.67 cm Jonelle Mauricio Other [employer] Other 06-16-2023 11:30-0400 Body mass index (BMI) [Ratio] 25.54 kg/m2 Jonelle Mauricio Other [facility] [employer] Other 06-16-2023 11:30-0400 Body weight 60.33 kg Jonelle Mauricio Other [employer] Other 06-16-2023 11:30-0400 Diastolic blood pressure 82 mm[Hg] Jonelle Mauricio Other [employer] Other 06-16-2023 11:30-0400 SaO2% (BldA) [Mass fraction] 98 % Jonelle Mauricio Other [employer] Other 06-16-2023 11:30-0400 Systolic blood pressure 126 mm[Hg] Jonelle Mauricio Other [employer] Other Encounters Encounter Date Encounter Type Care Provider Facility Start: 2024 Patient encounter status [facility] Start: 2024 End: 2024 ambulatory [facility] Work Phone: Start: 2024 End: 2024 Patient encounter procedure [facility] Work Phone: Start: 07-25-2024 End: 07-25-2024 ambulatory [facility] Work Phone: Start: 07-25-2024 End: 07-25-2024 Patient encounter procedure [facility] Phys[facility] [place] Work Phone: Start: 05-22-2024 End: 05-22-2024 ambulatory [facility] Work Phone: Start: 05-22-2024 End: 05-22-2024 Patient encounter procedure [facility] Physician [facility] [place] Work Phone: Start: 05-15-2024 End: 05-15-2024 ambulatory [facility] Work Phone: Start: 05-15-2024 End: 05-15-2024 Patient encounter procedure [facility] Physician [facility] [place] Work Phone: Start: 11-29-2023 End: 11-30-2023 ambulatory PRIYA AGUERO Not Available Start: 08-30-2023 End: 08-30-2023 ambulatory Jonelle Mauricio Other [employer] Other Start: 08-30-2023 Telephone encounter Jonelle Mauricio [facility] Start: 08-09-2023 End: 08-09-2023 ambulatory Jonelle Mauricio Other [employer] Other Start: 08-09-2023 Chart abstracting Priya CARBAJAL Work Phone: [facility] Start: 08-09-2023 Telephone encounter Jonelle Mauricio [facility] Start: 07-27-2023 End: 07-27-2023 ambulatory Jonelle Mauricio Other [employer] Other Start: 07-27-2023 Telephone encounter Jonelle Mauricio [facility] Start: 06-16-2023 End: 06-16-2023 ambulatory Jonelle Mauricio Other [employer] Other Start: 06-16-2023 Office outpatient vi sit 15 minutes Jonelle Mauricio [facility] Start: 12-16-2021 End: 12-16-2021 ambulatory SOLOMON LEAL Facility:[facility] Start: 12-10-2021 End: 12-10-[address] JONELLE MAURICIO Facility:[facility] Start: 10-30-2021 End: 10-31-[address] JUSTYN CRISTINA Facility:[facility] Start: 06-21-2018 End: 06-21-2018 Emergency department patient visit JONELLE MAURICIO [facility] Start: 05-20-2017 End: 05-20-2017 Gynecological examination normal Jonelle Mauricio Other [employer] Other Procedures Date Procedure Procedure Detail Performing [...] procedure 12/20/2023 10:30 AM EST Office Visit [facility] [address] [facility] [address] [place] [id number] Priya Aguero PA [address] [facility] [address] [place] [address] [facility] Start: 07-02-2023 Influenza vaccination Influenza Vaccine (#1) [facility] Start: 2012 Screening for malignant neoplasm of breast Mammogram [facility] Start: 2002 Screening for malignant neoplasm of cervix [facility] Start: 1993 Screening for malignant neoplasm of cervix Pap Smear [facility] Start: 1972 Screening for malignant neoplasm of colon [facility] metabo lic 2000 panel - Serum or Plasma [facility] Holter monitor study [facility] MG Breast - bilatera l Screening [facility] Payers Date Payer Category Payer Medicare [id number] 2017 Medicaid MEDICAID [facility] [id number] 2017-Present [phone] [address] [place] [address] Medicaid [id number] 1972 Unknown [id number] 1972 Unknown [id number] 1972 Unknown [id number] 1972 Unknown [id number] 1972 Unknown [id number] 1957 Medicaid [id number] 1957 Medicare [id number] Medicaid [place] Advantage [id number] 201 [id number] Social History Date Type Detail Facility Start: 08-23-2023 Sex Assigned At N [facility] [employer] Other Start: 08-09-2023 Tobacco smoking status MAIS Smokes tobacco daily [facility] History of [...] Start: 05-15-2024 End: 07-25-2024 Tobacco smoking status [facility] Smoker (finding) [facility] Start: 1970 Sex Assigned At Female F [facility] NEGATED: Highlighted row [facility] Evaluation note 08-30-2023 Note Date & Type Note Facility 08-30-2023 Evaluation note Encounter Date Diagnosis Assessment Notes Aug, Screening mammogram for breast cancer (ICD-10 - Z12.31) [facility] [employer] Other Evaluation note 07-27-2023 Note Date & Type Note Facility 07-27-2023 Evaluation note Encounter Date Diagnosis Assessment Notes Jul, Bone lesion (ICD-10 - M89.9) Jul, Right hip pain (ICD-10 - M25.551) [facility] [employer] Other Evaluation note 06-16-2023 Note Date & [...] to monitor and followup in 1 month. [employer] Other Clinical Note 10-30-2021 Note Date & [...] by: JUSTYN CRISTINA Date: 2021-10-30 11:42 [facility] Evaluation note Note Date & Type Note Facility Evaluation note No Information [employer] Other Evaluation note Note Date & Type Note Facility Evaluation note No assessment information availa [facility] Work Phone: Evaluation note Note Date & Type Note Facility Evaluation note Diagnosis Onset Date Contact dermatitis [facility] Work Phone: Evaluation note Note Date & Type Note Facility Evaluation note Diagnosis Onset Date Contact dermatitis acute Contact dermatitis [facility] Work Phone: Evaluation note Note Date & Type Note Facility Evaluation note Diagnosis Onset Date Sand flea infestation acute Essential (primary) hypertension acute Palpitations acute Screening for colon cancer a cute Screening mammogram for breast cancer [facility] Work Phone: History general Narrative - Reported Note Date & Type Note Facility History general Narrative - Reported Type Medical History Essential (primary) hypertension Medical History Anxiety disorder, unspecified Medical History Pain of right hip Surgical History RADHA Surgical History cholecystectomy Hospitalization History childbirth Hospitalization History seizures [employer] Other Summary Purpose Family History Relationship Condition [...] (M25. 551) Referral Organization [facility] Referring Provider First Name Jonelle Referring Provider Last Name Hang Referring Provider Specialty Family [facility] Referred Organization [facility] Referred Provider Michael Tellez Jr. Referred Address ,[place], [place],[address] Referred Provider Specialty Orthopedic S urgery Referral Priority Routine General Notes Briana Mccarthy 03:38:48 PM >received today, attachments made, referral faxed Clinical Notes f: [id number] Chief Complaint and Reason for Visit Chief [...] DATE CREATED AUTHOR AUTHOR'S ORGANIZ ATION 12/04/2023 [facility] Special[facility] EPIC REASON FOR VISIT (unrecogniz ed section and content) high bpNo Informationmri res ultsmessage Care Teams (unrecognized sec tion and content) Casino Investigator Relationship Specialty Start Date End Date Jonelle Mauricio MD [address] [place] [id number] PCP - General Family Medicine 08/09/23 Team [...] BE BASED ON THE PRIMARY CLINICAL RECORDS. [facility]. provides no warranty or guarantee of the accuracy or completeness of information in this document.
== END 2024-09-14 09:53 | disposition home or self-care (01) ==
PROVIDERS: PCP Family Medicine; Visit Provider Family Medicine
DX: R00.2 Palpitations (principal); Z12.31 Encounter for screening mammogram for malignant neoplasm of breast; Z80.8 Family history of malignant neoplasm of other organs or systems
CPT/HCPCS: 77063; 77067; 93242

== ENCOUNTER 2025-06-07 09:46 | Outpatient (OUT) | payer OTHER, MEDICAID, SELFPAY ==
--- OUTSIDE RECORDS SUMMARY | 2023-12-28 09:45 | XMS_ITS | Continuity of Care Document ---
Author Organization [facility] Address [address] [place] [address] Phone Care Team Providers Care Digital Ad Trafficker Name Role Phone Evin Nicholson DMD Unavailable Unavailable Allergies, Adverse Reactions, Alerts Substance Reaction Status Criticality No Known Allergies Active No Inform ation Procedures Procedure Date Intraoral-complete Series (bw) Comp Oral Eval New/estab Patient 2023 Oral Hygiene Instruction Advance Directives Directive Yes / No Effective Date File Name No Information Encounters Encounter Description Practice Location Reason(s) For Visit Diagnoses Date Provider Providers Copied on Encounter [facility], [address] [place] [address], [id number], [place] tel:[phone] [facility] DN (chief complaint) Body mass index [BMI] 22.0-22.9, adultEncounter for screening for dental disorders Lyn Cleary. [address] [place] [address], [id number] , [place]. tel:[phone] Family History Family Member Type Diagnosis Age At Onset No Information Payers Payer name Insurance type Covered republican ID Tracy almanzar(juwan) [facility] [id number] Social History Type Description Quantity Date Captured Comments Alcohol Use Details Unknown Caffeine Use Details Unknown Tobacco Use Status Heavy cigarette smok er (20-39 cigs/day) Smoking Status Heavy tobacco smoker Smoking Tobacco Use Details Cigarette: Years Used 9 Cigarette: 1 Packs per day, Pack Year: 9 Sex Female Sexual Orientation Straight or heterosexual Gender Identity Female Vital Signs Date / Time: Height Weight BMI Pulse Rate Blood Pressure Temperature Respiratory Rate Body Surface Area Head Circumference Head Circ. Percentile Wt./Isaac. Percentile BMI percentile Pulse Ox Inhaled Ox 1:58 PM 61.00 in 54.431 kg (120.00 lbs) 22.6 7 kg/m eter (2) 88 /min 145/97 mm[Hg] 97.50 F Chief Complaint And Reason For Visit From encounter dated '12/28/2023 13:45'. DN (chief complaint) Reason For Referral Reason For Referral No Information Plan Of Treatment Date Type Action Status Goal Tdap. Due on due Goal Mammogram. Due on due Goal Unhealthy drug use screening . Due on due Goal FOBT. Due on due Goal Zoster vaccine (1st). Due on due Goal Hepatitis C screening. Due o n due Goal CT-Colonography. Due on due Goal FIT. Due on due Goal Tdap Vaccine. Due on 2023 due Goal HPV. Due on due Goal Depression screening. Due on due Goal FIT-DNA. Due on due Goal Colonoscopy. Due on due Goal Lipid panel. Due on due Goal Influenza vaccine. Due on due Goal PRAPARE ASSESSMENT. Due on due Goal Dietary management education , guidance, and counseling completed History Of Present Illness Encounter Date Complaint History Of Prese nt Illness DN Functional Status Date Functional Assessmen t No Information Instructions Date Instruction Additional Infor mation Giving encouragement to exercise Related to Body mass index [BMI] 22.0-22.9, adult Dietary management e ducation, guidance, and counseling Related to Body mass index [BMI] 22.0-22.9, adult Assessments Type Assessment Date assessment Body mass index [BMI] 22.0-22.9, adult Patient Care Teams Name Effective Dates (start - stop) Status Members No Information
--- OUTSIDE RECORDS SUMMARY | 2025-05-29 09:25 | XMS_ITS | Encounter Summary ---
Author Organization [facility] Address [address] [place] [address] Care Team Providers Care Senior Linux Unix Administrator Name Role Phone Jonelle Hess MD Primary Care Provider Encounter Details Date Type Department Care Team (Late Contact Info) Description 05/29/2025 9:25 AM EDT Ancillary Procedure [facility] [address] [place] [address] Social History Tobacco Use Types Packs/Day Years Used Date Smoking Tobacco: Every Day Cigarettes Smokeless Tobacco: Never Alcohol Use Standard Drinks/Week Comments Not Currently 0 (1 standard drink = 0.6 oz pur e alcohol) Comments Unknown Sex and Gender Information Value Date Recorded Sex Assigned at Not on file Legal Sex Female 6:40 PM EDT Gender Identity Not on file Sexual Orientation Not on file documented as of this encounter Plan of Treatment Upcoming Encounters Date Type Department Care Team (Late Contact Info) Description 06/20/2025 11:00 AM EDT Office Visit [facility] [address] [place] [address] Erasto Aguero PA [address] [place] [address] documented as of this encounter Procedures Procedure Name Priority Date/Time Associated Diagnosis Comments XR HIP 2 OR 3 VW RIGHT Routine 05/29/2025 9:21 AM EDT Acute right hip pain documented in this encounter Results * XR hip right 2 or 3 views (05/29/2025 9:21 AM EDT) Anatomical Region Laterality Modality Lower Extremities, Hip Right Radiograp hic Imaging Narrative 05/29/2025 10:19 AM EDT Imaging Result: AP and Lateral right hip. No acute fracture or dislocation No disruption of cortex or trabeculae. Pt has degenerative cystic changes superior lateral femoral head with likely mild cam deformity Femoral head otherwise well centered in acetabulum . Bowel gas pattern unremarkable with metallic clips Impression: No acute process right hip. us Erasto CARBAJAL IMG XR PROCEDURES Final Resul t documented in this encounter Visit Diagnoses Not on filedocumented in this encounter Care Teams Senior Linux Unix Administrator Relationship Specialty Start Date End Date Jonelle Hess MD [address] [place] [phone] PCP - General Family Medicine 05/28/25 documented as of this encounter
--- OUTSIDE RECORDS SUMMARY | 2025-05-29 09:30 | XMS_ITS | Encounter Summary ---
Author Organization [facility] Address [address] [place] [address] Care Team Providers Care Farm Labor Contractor Name Role Phone Jonelle Hess MD Primary Care Provider Reason for Visit * Reason Comments Pain Encounter Details Date Type Department Care Team ([facility] st Contact Info) Description 05/29/2025 9:30 AM EDT Office Visit [facility] [address] [facility] [place] [address] Erasto Aguero PA [address] [place] [address] Acute right hip pain (Primary Dx) Social History Tobacco Use Types Packs/Day Years [...] on file documented as of this encounter Progress Notes * SOLOMON William - 05/29/2025 9:30 AM EDT Images from the original note were not included. Orthopedic Office note: NAME: Swati Cervantes : 1970 (EST PT) RT HIP PAIN, WOKE UP ON 05/25/25 WITH PAIN. NKI. XRAY TODAY EPIC 05/29/25 XRAY RT HIP EPIC 11/29/23 XRAY [facility] 07/22/23 MRI [facility] 08/06/23 DEPO INJECTION 11/29/23 PREDNISONE 08/09/23 (DID NOT TAKE) PAIN IN RT BUTTOCKS, LATERAL HIP AND ANTERIOR INTO GROIN. RADIATES MEDIAL AND LATERAL DOWN LEG. WILL GET SPASMS IN LEG. SITTING AND LAYING DOWN IS WORSE, PAIN GETS INTENSE. +TYL AND IBU, NO RELIEF. +ICE, HEAT, TOPICAL CREAM. HAS TO HELP LEG TO LIFT IT. DENIES N/T, SWELLING. +POPPING. +GIVING OUT. Hip Musculoskeletal Exam Gait Antalgic: right Limp: right Inspection Leg length disparity: no discrepancy Right Erythema: none Ecchymosis: none Edema: none Deformity: none Palpation Right Right hip palpation is normal. Increased warmth: none Tenderness: none Range of Motion Right Right hip range of motion is within functional limits. Active ROM: normal. Passive ROM: normal. Active extension: 35. Passive extension: 35. Active flexion: 80. Passive flexion: 90. Active internal rotation: 30. Passive internal rotation: 30. Active external rotation: 40. Passive external rotation: 40. Strength Right Right hip strength is normal. Extension: 4+/5. Extension is affected by pain. Flexion: 4+/5. Flexion is affected by pain. Internal rotation: 5/5. Internal rotation is affected by pain. External rotation: 5/5. External rotation is affected by pain. Adduction: 5/5. Abduction: 5/5. Neurovascular Right Right hip neurovascular exam is normal. Pulses - PT: normal Posterior tibial: 2+ Special Tests Right Log roll test: positive Impingement test: positive General Constitutional: appears stated age Labored breathing: no Psychiatric: normal mood and affect Neurological: alert and oriented x3 Skin: intact Lymphadenopathy: none Orders Placed This Encounter Procedures XR hip right 2 or 3 views Is the patient ?: No Reason for exam:: pain Procedures Results ICD-10-CM 1. Acute right hip pain M25.551 XR hip right 2 or 3 views predniSONE (Deltasone) 20 MG tablet Assessment & Plan Hip pain- possible effusion- pt denies injury, but believes she may have had a seizure during the night prior to onset.. recommend prednisone taper. Denies fever. Risk and benefits of medication discussed.. recheck by phone on Wednesday, consider MRI if not improvement or symptoms worsen... Pt may need IA Injection.. pt thankful Questions answered in laymen terms at the bedside. The diagnosis, home exercise plan and any ongoing restrictions/ recommendations reviewed. If unable to be reached in office, I recommend evaluation at nearest Emergency Room if any symptoms worsened or new symptoms develop for requiring urgent evaluation. Visit was preformed using [employer]docking pilot speech recognition. documented in this encounter Plan of Treatment Upcoming Encounters Date Type Department Care Team (Late st Contact Info) Description 06/20/2025 11:00 AM EDT Office Visit [facility] [place] [facility] [address] [place] [address] Erasto Aguero PA [address] [place] [address] documented as of this encounter [...] t documented in this encounter Visit Diagnoses Diagnosis Acute right hip pain- Primary documented in this encounter Care Teams Farm Labor Contractor Relationship Specialty Start Date End Date Jonelle Hess MD [address] [place] [phone] PCP - General Family Medicine 05/28/25 documented as of this encounter
--- OUTSIDE RECORDS SUMMARY | 2025-06-07 08:15 | XMS_ITS | Encounter Summary ---
Author Organization [facility] Address [address] [place] [address] Care Team Providers Care Scallop Cutter Machine Name Role Phone Jonelle Hess MD Primary Care Provider [phone] Reason for Visit * Reason Comments Follow-up Encounter Details Date Type Department Care Team (Latest Contact Info) Description 06/07/2025 8:15 AM EDT [facility] [address] [facility] [place] [phone] Shan Piper NP [address] [place], [place] [id number] Polyarthralgia (Primary Dx); Acute right hip pain; Trochanteric bursitis of right hip Social History Tobacco Use Types Packs/Day Years [...] as of this encounter Progress Notes * Shan Piper NP - 06/07/2025 8:15 AM EDT Images from the original note were not included. HISTORY OF PRESENT ILLNESS: EST PT Swtai M Billy is an 54 y.o. @ female. (EST PT, LAST VISIT W/MAIKEL) RT HIP PAIN; S/P PREDNISONE XRAY EPIC 05/29/25 XRAY RT HIP EPIC 11/29/23 XRAY [facility] 07/22/23 MRI [facility] 08/06/23 DEPO INJECTION 11/29/23 PREDNISONE 05/29/25 PREDNISONE 08/09/23 (DID NOT TAKE) STATES HER PAIN HAS IMPROVED GREATLY OVER THE LAST COUPLE OF DAYS. DOES NOT BELIEVE SHE HAD MUCH RELIEF FROM PREDNISONE, HAS 2 LEFT. STATES SHE TOOK ONE OF HER MOMS GABAPENTIN WITH SOME RELIEF. +IBU.PAIN IN RT BUTTOCKS, LATERAL HIP, GROIN AND THROUGHOUT LEG. TRIED ICE, HEAT AND ARTHRITIS CREAM. DENIES N/T. +POPPING, GRINDING. OCCAS GIVING OUT. PAIN IS MUCH WORSE AT HS. STATES WHEN SHE IS IN PAIN, SHE IS UNABLE TO MOVE HER LEG. HAS TO USE HER HANDS TO LIFT HER LEG. NOTES SHE HAS HAD RANDOM PAIN IN HER ELBOWS BEFORE AND IS VERY CONCERNED ABOUT AUTOIMMUNE DISEASE STATES DAUGHTER HAS AUTOIMMUNE DISEASE. TOO: WOKE UP ON 05/25/25 WITH PAIN. NKI. ALLERGIES: Allergies Allergen Reactions Hydrocodone-Acetaminophen Unknown Make her really hyper Iodine Rash HOME MEDICATIONS: Current Outpatient Medications Medication Instructions metoprolol succinate XL (TOPROL-XL) 25 mg, Oral, Daily predniSONE (Deltasone) 20 MG tablet Take 2 tablets (40 mg) by mouth Daily for 5 days, THEN 1 tablet(20 mg) Daily for 5 days. Take with food. PHYSICAL EXAM: Right Hip Exam Tenderness The patient is experiencing tenderness in the posterior, lateral and anterior. Range of Motion Flexion: 110 External rotation: 70 (PAIN WITH TERMINAL ROTATION IN GROIN AND LATERAL HIP) Internal rotation: 25 Muscle Strength Right hip normal muscle strength: 4+/5. Other Erythema: absent Right hip sensation: PAIN RADIATING DOWN LEG. Pulse: present Vitals: There is no height or weight on file to calculate BMI. Tobacco Use: High Risk (06/07/2025) Patient History Smoking Tobacco Use: Every Day Smokeless Tobacco Use: Never Passive Exposure: Not on file Alcohol Use: Not on file IMAGING: Procedures No orders of the defined types were placed in this encounter. ASSESSMENT: ICD-10-CM 1. Polyarthralgia M25.50 2. Acute right hip pain M25.551 3. Trochanteric bursitis of right hip M70.61 PLAN: Patient states today is the best she has felt in weeks. Still having hip pain that radiates down her leg but overall improved. She does not believe this is related to prednisone that she was prescribed. I reviewed treatment options including PT and MRI of the hip. Patient is very concerned about a possible autoimmune disease as she states her daughter has one. She would like to have lab work ordered. I will order labs for patient and have her follow up in 2 weeks for RCK. If still having pain and labs are negative consider PT or MRI of right hip. Questions answered in laymen terms at the bedside. The diagnosis, home exercise plan and any ongoing restrictions/ recommendations reviewed. If unable to be reached in office, I recommend evaluation at nearest Emergency Room if any symptoms worsened or new symptoms develop for requiring urgent evaluation. documented in this encounter Plan of Treatment Upcoming Encounters Date Type Department Care Team (Late st Contact Info) Description 06/20/2025 11:00 AM EDT Office Visit [facility] [address] [place] [address] Erasto Aguero PA [address] [place] [address] Scheduled Orders Name Type Priority Associated Diagnoses Orde r Schedule Rheumatoid factor Lab Routine Polyarthralgia Expected: 06/07/2025 (Approximate), Expires: 06/07/2026 STEPHENIE Lab Routine Polyarthralgia Expected: 06/07/2025 (Approximate), Expires: 06/07/2026 LYME DISEASE ANTIBODY (IGG), IMMUNOBLOT Lab Routine Polyarthralgia Expected: 06/07/2025 (Approximate), Expires: 06/07/2026 Uric acid Lab Routine Polyarthralgia Expected: 06/07/2025 (Approximate), Expires: 06/07/2026 SYSTEMIC LUPUS ERYTHEMATOSUS (SLE), DISEASE ACTIVITY PANEL Lab Routine Polyarthralgia Expected: 06/07/2025 (Approximate), Expires: 06/07/2026 C-reactive protein Lab Routine Polyarthralgia Expected: 06/07/2025 (Approximate), Expires: 06/07/2026 Sedimentation rate, automated Lab Routine Polyarthralgia Expected: 06/07/2025 (Approximate), Expires: 06/07/2026 CBC and differential Lab Routine Polyarthralgia Expected: 06/07/2025 (Approximate), Expires: 06/07/2026 documented as of this encounter Visit Diagnoses Diagnosis Polyarthralgia- Primary Pain in joint, multiple sites Acute right hip pain Trochanteric bursitis of right hip documented in this encounter Care Teams Scallop Cutter Machine Relationship Specialty Start Date End Date Jonelle Hess MD [address] [place] [address] PCP - General Family Medicine 05/28/25 documented as of this encounter
--- OUTSIDE RECORDS SUMMARY | 2025-06-07 09:50 | XMS_ITS | Encounter Summary ---
Author Organization [facility] Address [address] [facility] [place] [address] Care Team Providers Care Paper Stacker Name Role Phone Jonelle Hess MD Primary Care Provider [phone] Encounter Details Date Type Department Care Team (Latest Contact Info) Description 06/07/2025 Travel Social History Tobacco Use Types Packs/Day Years [...] Description 06/20/2025 11:00 AM EDT Office Visit [facility] [address] [place] [address] Erasto Aguero PA [address] [place] [address] documented as of this encounter Visit Diagnoses Not on filedocumented in this encounter Care Teams Paper Stacker Relationship Specialty Start Date End Date Jonelle Hess MD [address] [place] [phone] PCP - General Family Medicine 05/28/25 documented as of this encounter
--- OUTSIDE RECORDS SUMMARY | 2025-06-07 09:50 | XMS_ITS | Encounter Summary ---
Author Organization [facility] Address [address] [facility] [place] [address] Care Team Providers Care Poultry Farmer Name Role Phone Jonelle Hess MD Primary Care Provider [phone] Encounter Details Date Type Department Care Team ([facility] Contact Info) Description 06/07/2025 Bamboo flowsheet [facility] [address] [place] [address] Shan Piper NP [address] [facility] [place] [address] Social History Tobacco Use Types Packs/Day Years [...] Description 06/20/2025 11:00 AM EDT Office Visit [facility] [address] [place] [address] Erasto Aguero PA [address] [facility] [place] [address] documented as of this encounter Visit Diagnoses Not on filedocumented in this encounter Care Teams Poultry Farmer Relationship Specialty Start Date End Date Jonelle Hess MD [address] [place] [phone] PCP - General Family Medicine 05/28/25 documented as of this encounter
--- OUTSIDE RECORDS SUMMARY | 2025-06-07 09:50 | XMS_ITS | Encounter Summary ---
Author Organization [facility] Address [address] [place] [address] Care Team Providers Care Long Term Name Role Phone Jonelle Hess MD Primary Care Provider [phone] Encounter Details Date Type Department Care Team (Late st Contact Info) Description 06/02/2025 Telephone [facility] [address] [place] [address] Erasto Aguero PA [address] [place] [address] Social History Tobacco Use Types [...] on file documented as of this encounter Miscellaneous Notes * Telephone Encounter - QUIANA Smart - 06/04/2025 10:37 AM EDT Called and spoke to patient. Still having a lot of pain. Continues prednisone. Has a few days left.Scheduled with Shan 06/07 * Telephone Encounter - SOLOMON William - 06/02/2025 7:49 AM EDT Karen, Please call and see how her hip pain is doing with prednisone... she may need MRI, consider appt with Shan this week to recheck if still very painful. ( Apologies- I did not call Wednesday to check) * Telephone Encounter - SOLOMON William - 06/02/2025 7:49 AM EDT ----- Message from SOLOMON Ryan sent at 05/29/2025 10:15 AM EDT ----- Recheck right Hip pain s/p prednsione. Consider MRI documented in this encounter Plan of Treatment Upcoming Encounters Date Type Department Care Team (Late st Contact Info) Description 06/20/2025 11:00 AM EDT Office Visit [facility] [address] [place] [address] Erasto Aguero PA [address] [place] [address] documented as of this encounter Visit Diagnoses Not on filedocumented in this encounter Care Teams Long Term Relationship Specialty Start Date End Date Jonelle Hess MD [address] [place] [address] PCP - General Family Medicine 05/28/25 documented as of this encounter
--- OUTSIDE RECORDS SUMMARY | 2025-06-07 09:50 | XMS_ITS | Clinical Summary ---
Author Organization [facility] Address [address] [place] [address], [address] [place] [address] Care Team Providers Care Cement Mixer Name Role Phone Jonelle Hess MD Primary Care Provider [phone] Allergies Active Allergy Reactions Criticality Noted Date Comments Iodine Rash Low 01/18/2012 Hydrocodone-Acetamin ophen Other (See Comments) Medium 05/31/2016 Make her really hyper Medications ibuprofen (ADVIL;MOTRIN) 200 MG tablet Take 200 mg by mouth every 6 hours as needed for Pain Active Social History Tobacco Use Types Packs/Day Years Used Date Smoking Tobacco: Every Day Cigarettes 0.5 10 Smokeless Tobacco: Never Tobacco Cessation:Ready to Q uit: No; Counseling Given: No Alcohol Use Standard Drinks/Week Comments Yes 0 (1 standard drink = 0.6 oz pur e alcohol) 4 beers per month Comments No Sex and Gender Information Value Date Recorded Sex Assigned at Not on file Legal Sex Female 2:27 PM EST Gender Identity Not on file Sexual Orientation Not on file Last Filed Vital Signs Vital Sign Reading Time Taken Comments Blood Pressure 138/88 06/21/2018 9:04 PM EDT Pulse 103 06/21/2018 9:04 PM EDT Temperature 36.7 C (98.1 F) 06/21/2018 6:54 PM EDT Respiratory Rate 14 06/21/2018 9:04 PM EDT Oxygen Saturation 95% 06/21/2018 9:04 PM EDT Inhaled Oxygen Concentration - - Weight 57.2 kg (126 lb) 06/21/2018 6:54 PM EDT Height 157.5 cm (5' 2 ) 06/21/2018 6:54 PM EDT Body Mass Index 23.05 06/21/2018 6:54 PM EDT Plan of Treatment Not on file Insurance MEDICAID [place] MEDICARE Care Teams Cement Mixer Relationship Specialty Start Date End Date Jonelle Hess MD PCP - General 05/31/16
--- OUTSIDE RECORDS SUMMARY | 2025-06-07 09:50 | XMS_ITS | Clinical Summary ---
Author Organization [facility] Address [address] [facility] [place] [address] Care Team Providers Care Pathology Specialist Name Role Phone Jonelle eHss MD Primary Care Provider [phone] Allergies Active Allergy Reactions Criticality Noted Date Comments Hydrocodone-Acetaminophen Unknown Medium 05/31/2016 Make her really hyper Iodine Rash Low 01/18/2012 Medications metoprolol succinate XL (Toprol-XL) 25 MG 24 hr tablet Take 25 mg by mouth in the morning. 07/22/2023 Active predniSONE (Deltasone) 20 MG tabletIndicatio ns:Acute right hip pain Take 2 tablets (40 mg) by mouth Daily for 5 days, THEN 1 tablet (20 mg) Daily for 5 days. Take with food. 15 tablet 05/29/2025 Active Active Problems No known active problems Encounters Date Type Department Care Team Description 06/07/2025 8:15 AM EDT Office Visit [facility] [address] [place] [address] Shan Piper NP Polyarthralgia (Primary Dx); Acute right hip pain; Trochanteric bursitis of right hip 06/07/2025 Bamboo flowsheet [facility] [address] [place] [address] Shan Piper NP 06/07/2025 Travel 06/02/2025 Telephone [facility] [address] [facility] [address] [place] [phone] Erasto Aguero PA 05/29/2025 9:30 AM EDT Office Visit [facility] [address] [place] [address] Erasto Aguero PA Acute right hip pain (Primary Dx) 05/29/2025 9:25 AM EDT Ancillary Procedure [facility] [place] [address] [place] [address] 05/29/2025 Bamboo flowsheet [facility] [place] [address] [place] [address] Erasto Aguero PA 05/29/2025 Travel from Last 3 Months Family History Relation Name Status Comments Father Mother Alive Social History Tobacco Use Types Packs/Day Years [...] Sign Reading Time Taken Comments Blood Pressure - - Pulse - - Temperature - - Respiratory Rate - - Oxygen Saturation - - Inhaled Oxygen Concentration - - Weight 59 kg (130 lb) 11/29/2023 10:17 AM EST Height 149.9 cm (4' 11 ) 11/29/2023 10:17 AM EST Body Mass Index 26.26 11/29/2023 10:17 AM EST Plan of Treatment Upcoming Encounters Date Type Department Care Team (Late st Contact Info) Description 06/20/2025 11:00 AM EDT Office Visit [facility] [address] [place] [address] Erasto Aguero PA [address] [place] [address] Health Maintenance Due Date Last Done Comments CT Colonography 1972 Colonoscopy 1972 Colorectal Cancer Screening 1972 FIT-DNA 1972 FIT 1972 FOBT 1972 Sigmoidoscopy 1972 Pap Smear 1993 Cervical Cancer Screening 2002 HPV/Cotest 2002 Mammogram 2012 Influenza Vaccine (#1) 2025 Procedures Procedure Name Priority Date/Time Associated Diagnosis Comments XR HIP 2 OR 3 VW RIGHT Routine 05/29/2025 9:21 AM EDT Acute right hip pain from Last 3 Months Results * XR hip right 2 or [...] CARBAJAL IMG XR PROCEDURES Final Resul t from Last 3 Months Insurance MEDICAID [place] [employer] MEDICARE Care Teams Pathology Specialist Relationship Specialty Start Date End Date Jonelle Hess MD [address] [place] [phone] PCP - General Family Medicine 05/28/25
--- OUTSIDE RECORDS SUMMARY | 2025-06-07 09:50 | XMS_ITS | Encounter Summary ---
Author Organization [facility] Address [address] [facility] [place] [address] Care Team Providers Care Maintenance Apprentice Name Role Phone Jonelle Hess MD Primary Care Provider [phone] Encounter Details Date Type Department Care Team (Latest Contact Info) Description 05/29/2025 Travel Social History Tobacco Use Types Packs/Day [...] Visit [facility] [address] [place] [address] Erasto Aguero PA [address] [place] [address] documented as of this encounter Visit Diagnoses Not on filedocumented in this encounter Care Teams Maintenance Apprentice Relationship Specialty Start Date End Date Jonelle Hess MD [address] [place] [phone] PCP - General Family Medicine 05/28/25 documented as of this encounter
--- OUTSIDE RECORDS SUMMARY | 2025-06-07 09:50 | XMS_ITS | Encounter Summary ---
Author Organization [facility] Address [address] [facility] [place] [address] Care Team Providers Care Senior Analyst Market Intelligence Name Role Phone Jonelle Hess MD Primary Care Provider [phone] Encounter Details Date Type Department Care Team ([facility] Contact Info) Description 05/29/2025 Bamboo flowsheet [facility] [address] [place] [address] Erasto Aguero PA [address] [facility] [place] [address] Social History Tobacco Use Types [...] Description 06/20/2025 11:00 AM EDT Office Visit [facility] [address] [place] [address] Erasto Aguero PA [address] [facility] [place] [address] documented as of this encounter Visit Diagnoses Not on filedocumented in this encounter Care Teams Senior Analyst Market Intelligence Relationship Specialty Start Date End Date Jonelle Hess MD [address] [place] [phone] PCP - General Family Medicine 05/28/25 documented as of this encounter
[2025-06-07 10:39] LABS: Hematocrit 45.0 % (36.0-48.0); Hemoglobin 15.0 g/dL (12.0-16.0); Immature Granulocytes Abs Auto 0.03 10^3/uL (0.00-0.03); Immature Granulocytes Pct Auto 0.3 % (0.0-0.5); Lymphocytes Absolute Auto 3.0 10^3/uL (1.2-3.8); Mean Corpuscular HGB Conc 33.3 g/dL (29.9-35.2); Mean Corpuscular Hemoglobin 32.2 pg (26.7-34.0); Mean Corpuscular Volume 96.6 fL (81.0-99.0); Platelet Count 467 10^3/uL (150-450); Red Blood Count 4.66 10^6/uL (4.20-5.40); White Blood Count 10.0 10^3/uL (4.0-11.0)
[2025-06-07 10:48] LABS: Uric Acid 2.1 mg/dL (2.6-6.0)
[2025-06-08 14:08] LABS: Antinuclear Antibodies, IFA Negative (.)
== END 2025-06-07 09:47 | disposition home or self-care (01) ==
LOC: LAB 09:48
PROVIDERS: PCP Family Medicine; Visit Provider Nurse Practitioner Family
DX: M25.50 Pain in unspecified joint (principal)
CPT/HCPCS: 36415; 84550; 85025; 85652; 86038; 86140; 86618